=== PATIENT | female | born 1965 | race Two or more races ===

== ENCOUNTER 2020-06-22 06:54 | Outpatient (NON) | payer MEDICARE, SELFPAY ==
[2020-06-22 19:23] LABS: SARS-CoV-2 RNA PCR Negative
== END 2020-06-22 06:55 ==
PROVIDERS: PCP Internal Medicine; Visit Provider Chiropractor
DX: R05 Cough (principal); Z20.822 Contact with and (suspected) exposure to COVID-19
CPT/HCPCS: C9803; U0003

== ENCOUNTER → 2020-10-27 15:21 | Outpatient (CLI) | payer MEDICARE, SELFPAY ==
--- NOTE | ~2020-10-27 | XR_ITS ---
XR hip BI wo pelvis DATE: 10/27/2020 16:13 INDICATION: Bilateral hip pain TECHNIQUE: AP and lateral views of each hip COMPARISON: None FINDINGS: No fracture or dislocation, avascular necrosis or bone destruction of either hip is evident . Hip joint spaces appear symmetric and well preserved. The pubic symphysis and sacroiliac joints are intact. IMPRESSION: No significant abnormality Reviewed, dictated and finalized at location A. IMPRESSION: No significant abnormality
== END ==
PROVIDERS: PCP Chiropractor; Visit Provider Chiropractor
DX: M25.551 Pain in right hip (principal); M25.552 Pain in left hip
CPT/HCPCS: 73521

== ENCOUNTER → 2020-11-01 08:37 | Outpatient (CLI) | payer MEDICARE, SELFPAY ==
--- NOTE | ~2020-11-01 | MMUS_ITS ---
EXAMINATION: MM diagnostic justine BI w leonel, US breast RT complete HISTORY: Right breast lumpiness. Palpable right lateral breast abnormality and axillary tenderness. TECHNIQUE: Additional 3-D tomosynthesis images of the breasts were performed and synthetic 2-D images were generated. CAD analysis was submitted and interpreted. High resolution complete breast and axil brandon ultrasound was performed. COMPARISON: None BREAST PARENCHYMAL COMPOSITION: Breast composed of scattered areas of fibroglandular density. FINDINGS: MAMMOGRAPHIC FINDINGS: There is a small circumscribed mass upper outer quadrant of the right breast, middle third, most like ly benign intramammary lymph node. There is symmetric bilateral axillary lymph nodes. No suspicious c alcifications or architectural distortion. No evidence for malignancy in the left breast. ULTRASOUND: Right breast/axillary ultrasound: At 10:00, 8 cm from the nipple, there is an oval hypoechoic mass me asuring 7 mm, parallel orientation, no posterior features and no internal vascularity. There are mild ly enlarged right axillary lymph nodes with retention of normal fatty hilum. Largest lymph node measu res approximately 2.3 cm. IMPRESSION: 1. Probable benign right breast intramammary and axillary lymph nodes. 2. Recommend 6 month follow-up diagnostic right mammogram and ultrasound BI-RADS category 3, probably benign findings. Reviewed, dictated and finalized at location A. IMPRESSION: 1. Probable benign right breast intramammary and axillary lymph nodes. 2. Recommend 6 month follow-up diagnostic right mammogram and ultrasound BI-RADS category 3, probably benign findings.
== END ==
PROVIDERS: Visit Provider Chiropractor
DX: R92.8 Other abnormal and inconclusive findings on diagnostic imaging of breast (principal)
CPT/HCPCS: 76641; 77062; 77066; G0279

== ENCOUNTER → 2021-04-24 09:49 | Outpatient (REF) | payer MEDICARE, SELFPAY | LOC: ANHLAB 09:49 | PROVIDERS: PCP Internal Medicine; Visit Provider Nurse Practitioner | DX: D22.30 Melanocytic nevi of unspecified part of face (principal) | CPT/HCPCS: 88305 ==

== ENCOUNTER 2021-08-28 00:48 | Day surgery (SDC) | payer MEDICARE, SELFPAY ==
[2021-08-24 13:25] VITALS: BMI 25.1
[2021-08-28 06:45] VITALS: BP 149/79; PULSE 79; RESP 16; TEMP 36; O2SAT 98
[2021-08-28] MEDS: LACTATED RINGERS 1,000 ML 150 ML IV CONT (06:49)
--- NOTE | 2021-08-28 07:54 | WPDANESEPPF ---
Anes - Initial Pre Proc Eval Procedure: Operation Date: 08/28/21 08:00 Proposed Procedures p Colonoscopy - Tex Montoya MD Date/Time: 08/28/21 07:54 Surgeon: Tex Montoya MD Pre Op Diagnosis: Rectal bleed Patient Data Age: 55 Gender: F Height: 1.83 m Weight: 89.8 kg Last Vital Signs Temp 96.8 F L 08/28/21 06:45 Pulse 79 08/28/21 06:45 Resp 16 08/28/21 06:45 BP 149/79 H 08/28/21 06:45 Pulse Ox 98 08/28/21 06:45 Allergies Allergy/AdvReac Type Severity Reaction Status Date / Time hydrocodone Allergy Unknown Unknown Verified 08/28/21 06:44 morphine Allergy Unknown Unknown Verified 08/28/21 06:44 meperidine AdvReac Intermediate Nausea and Verified 08/28/21 06:44 Vomiting fentanyl AdvReac Mild Unknown Verified 08/28/21 06:44 SALICYLATES AdvReac Mild NOSE BLEEDS Uncoded 08/28/21 06:44 Home Medications Medication Instructions Recorded Confirmed Type Biest cream 10 mg/ml NOT APPLICABLE DAILY 11/28/20 08/28/21 History Progesterone 2 ml NOT APPLICABLE DAILY 11/28/20 08/28/21 History Testosterone 2 ml NOT APPLICABLE [id number] 11/28/20 08/28/21 History duloxetine 60 mg capsule,delayed 60 mg PO DAILY 11/28/20 08/28/21 History release lisinopril 10 mg tablet 10 mg PO DAILY 11/28/20 08/28/21 History low dose Naltrexone 4.5 mg BYMOUTH .every night 11/28/20 08/28/21 History thyroid (pork) 60 mg tablet 45 mg PO DAILY 11/28/20 08/28/21 History trazodone 50 mg tablet 75 mg PO QHS PRN tablet 11/28/20 08/28/21 History nortriptyline 25 mg capsule 25 mg PO DAILY #90 cap 07/17/21 08/28/21 Rx tizanidine 2 mg tablet 2 mg PO TID PRN #90 tablet 07/24/21 08/28/21 Rx omeprazole 20 mg capsule,delayed 20 mg PO DAILY #90 cap 08/21/21 08/28/21 Rx release alprazolam 2 mg tablet 2 mg PO TID tablet 08/23/21 08/28/21 History hydrochlorothiazide 25 mg PO DAILY 08/24/21 08/28/21 History omega-3 fatty acids [Fish Oil] 1 cap PO DAILY 08/24/21 08/28/21 History Patient hx anesthesia problems: none Family hx anesthesia problems: none Results Review: All pre-operative results and documents have been reviewed as part of the pre-operative evaluation. FORMERLY [facility] Past Medical History Medical History (Updated 08/23/21 @ 11:42 by Lorena Shane DO) Allergies Anxiety Arthritis Chronic post-traumatic stress disorder (PTSD) Family history of colon cancer in father Headache History of irritable bowel syndrome History of removal of cervix but not uterus Hypertension Migraine Thyroid disorder Surgical History Surgical History History of hemorrhoidectomy History of hysterectomy History of knee replacement Family History Family History Mother Hypertension Family history of rheumatoid arthritis Depression Anxiety Father Carcinoma of colon Acute myocardial infarction Cerebrovascular accident Sibling Leukemia Hypertension Anxiety Depression Acute myocardial infarction Grandparent Diabetes mellitus Hypertension Anxiety Depression Other Family history of cardiovascular disease Family history of kidney disease Family history of tuberculosis Social History Social History Smoking status: Former smoker Tobacco type: cigarettes Alcohol intake: never Substance use: never Substance use type: does not use Living arrangements: with family Spiritual care concerns: Yes (Would like a preacher to visit) Anes - Eval Final PreProcedure Day of Procedure 08/28/21 07:54 Patient weight: normal Heart: regular rate and rhythm Lungs: clear to auscultation Airway: Mallampati scale class II Neurological: alert and oriented Last oral intake: >/= 8 hours ASA classification: II Emergent: no Anesthetic plan: proceed Anesthesia type and monitoring: general GIVS and standard monitoring Resul
--- NOTE | 2021-08-28 07:57 | PM.HPGS ---
History of Present Illness History of Present Illness Consent: Risks, benefits, and alternatives have been discussed and questions answered. Patient agrees to proceed with procedure. Chief complaint: Rectal bleed Narrative: Mile Lopez is a 55 year old female with last colonoscopy about 10 years ago, had intermittent rectal bleeding with hemorrhoid treatment in the past Review of Systems Constitutional: Constitutional: Denies headache(s) and Denies weakness Eyes: Eyes: Denies blurry vision ENT: Reports Normal hearing present, Denies headache(s) and Denies neck pain Cardiovascular: Cardiovascular: Denies chest pain and Denies dyspnea Respiratory: Respiratory: Denies dyspnea Gastrointestinal: Gastrointestinal: Reports no additional gastrointestinal complaints Genitourinary: Genitourinary: Denies dysuria Musculoskeletal: Musculoskeletal: Denies neck pain Integumentary/Breasts: Skin/Breast: Denies dry skin Neurologic: Reports Normal hearing present, Denies headache(s) and Denies weakness Psychiatric: Psychiatric: Denies anxiety Endocrine: Endocrine: Denies change in body appearance Hematologic/Lymphatic: Hematologic/Lymphatic: Denies easy bleeding Allergic/Immunologic: Allergic/Immunologic: Denies urticaria PMFSH Past Medical History Medical History (Updated 08/23/21 @ 11:42 by Lorena Shane DO) Allergies Anxiety Arthritis Chronic post-traumatic stress disorder (PTSD) Family history of colon cancer in father Headache History of irritable bowel syndrome History of removal of cervix but not uterus Hypertension Migraine Thyroid disorder Surgical History Surgical History History of hemorrhoidectomy History of hysterectomy History of knee replacement Family History Family History Mother Hypertension Family history of rheumatoid arthritis Depression Anxiety Father Carcinoma of colon Acute myocardial infarction Cerebrovascular accident Sibling Leukemia Hypertension Anxiety Depression Acute myocardial infarction Grandparent Diabetes mellitus Hypertension Anxiety Depression Other Family history of cardiovascular disease Family history of kidney disease Family history of tuberculosis Social History Social History Smoking status: Former smoker Tobacco type: cigarettes Alcohol intake: never Substance use: never Substance use type: does not use Living arrangements: with family Spiritual care concerns: Yes (Would like a preacher to visit) Meds Home Medications and Allergies Home Medications Medication Instructions Recorded Confirmed Type Biest cream 10 mg/ml NOT APPLICABLE DAILY 11/28/20 08/28/21 History Progesterone 2 ml NOT APPLICABLE DAILY 11/28/20 08/28/21 History Testosterone 2 ml NOT APPLICABLE [id number] 11/28/20 08/28/21 History duloxetine 60 mg capsule,delayed 60 mg PO DAILY 11/28/20 08/28/21 History release lisinopril 10 mg tablet 10 mg PO DAILY 11/28/20 08/28/21 History low dose Naltrexone 4.5 mg BYMOUTH .every night 11/28/20 08/28/21 History thyroid (pork) 60 mg tablet 45 mg PO DAILY 11/28/20 08/28/21 History trazodone 50 mg tablet 75 mg PO QHS PRN tablet 11/28/20 08/28/21 History nortriptyline 25 mg capsule 25 mg PO DAILY #90 cap 07/17/21 08/28/21 Rx tizanidine 2 mg tablet 2 mg PO TID PRN #90 tablet 07/24/21 08/28/21 Rx omeprazole 20 mg capsule,delayed 20 mg PO DAILY #90 cap 08/21/21 08/28/21 Rx release alprazolam 2 mg tablet 2 mg PO TID tablet 08/23/21 08/28/21 History hydrochlorothiazide 25 mg PO DAILY 08/24/21 08/28/21 History omega-3 fatty acids [Fish Oil] 1 cap PO DAILY 08/24/21 08/28/21 History Allergies Allergy/AdvReac Type Severity Reaction Status Date / Time hydrocodone Allergy Unknown Unknown Verified 08/28/21 06:44 morphine Allergy Unknow
[2021-08-28 08:20] VITALS: BP 90/62; PULSE 73; RESP 20; O2SAT 97
[2021-08-28 08:30] VITALS: BP 112/78; PULSE 67; RESP 24; O2SAT 100
[2021-08-28 08:40] VITALS: BP 118/87; PULSE 93; RESP 28; O2SAT 100
== END 2021-08-28 08:46 | disposition home or self-care (01) ==
PROVIDERS: PCP Internal Medicine; Visit Provider Internal Medicine Gastroenterology
PROC: 0DJD8ZZ Inspection of Lower Intestinal Tract, Via Natural or Artificial Opening Endoscopic (ICD-10-PCS; CPT 45378; principal; 2021-08-28 08:00)
DX: K92.1 Melena (principal); Z80.0 Family history of malignant neoplasm of digestive organs; K57.30 Diverticulosis of large intestine without perforation or abscess without bleeding; K64.8 Other hemorrhoids; F41.9 Anxiety disorder, unspecified; M19.90 Unspecified osteoarthritis, unspecified site; F43.10 Post-traumatic stress disorder, unspecified; K58.9 Irritable bowel syndrome, unspecified; I10 Essential (primary) hypertension; E07.9 Disorder of thyroid, unspecified; Z87.891 Personal history of nicotine dependence
CPT/HCPCS: 45378; J2704; J7120

== ENCOUNTER 2021-09-11 10:37 | Outpatient (CLI) | payer MEDICARE, SELFPAY ==
[2021-09-11 12:10] LABS: Free T4 Free Thyroxine 0.35 ng/mL (0.78-2.19); T4 Thyroxine 3.54 ug/dL (5.53-11.0)
[2021-09-11 14:22] LABS: Total Triiodothyronine (T3) 0.61 NG/ML (0.97-1.69)
[2021-09-14 07:40] LABS: T3 Reverse 8 ng/dL (8-25)
[2021-09-17 00:38] LABS: Estradiol, Ultrasensitive 21 pg/mL
[2021-09-17 07:40] LABS: Testosterone Free 25.2 pg/mL (0.1-6.4); Testosterone Total 283 ng/dL (2-45)
[2021-09-18 04:12] LABS: Sex Hormone Binding Globulin 69 nmol/L (17-124)
[2021-09-18 08:11] LABS: Triiodothyronine T3 Free 1.5 pg/mL (2.3-4.2)
[2021-09-19 04:35] LABS: Thyroglobulin 1.3 ng/mL (2.8-40.9); Thyroglobulin Antibodies <1 IU/mL (<=1); Thyroid Peroxidase Antibodies 18 IU/mL (<9)
[2021-09-19 06:35] LABS: FSH 71.7 mIU/mL (***)
== END 2021-09-11 10:38 | disposition home or self-care (01) ==
PROVIDERS: PCP Internal Medicine; Visit Provider Chiropractor
DX: N95.1 Menopausal and female climacteric states (principal); N95.8 Other specified menopausal and perimenopausal disorders; E06.3 Autoimmune thyroiditis; E03.8 Other specified hypothyroidism
CPT/HCPCS: 36415; 82670; 83001; 84144; 84270; 84402; 84403; 84432; 84436; 84439; 84443; 84480; 84481; 84482; 86376; 86800

== ENCOUNTER 2022-01-14 14:44 | Outpatient (CLI) | payer MEDICARE, SELFPAY ==
[2022-01-14 15:53] LABS: T4 Thyroxine 4.56 ug/dL (5.53-11.0)
[2022-01-17 06:23] LABS: FSH 65.4 mIU/mL (***); Progesterone 9.6 ng/mL (***); Triiodothyronine T3 Free 3.2 pg/mL (2.3-4.2)
[2022-01-18 18:58] LABS: Testosterone Free 29.8 pg/mL (0.1-6.4); Testosterone Total 301 ng/dL (2-45)
[2022-01-21 07:27] LABS: Sex Hormone Binding Globulin 73 nmol/L (14-73)
[2022-01-22 01:42] LABS: Estradiol, Ultrasensitive 12 pg/mL
== END 2022-01-14 14:45 | disposition home or self-care (01) ==
PROVIDERS: PCP Internal Medicine; Visit Provider Chiropractor
DX: N95.1 Menopausal and female climacteric states (principal); N95.8 Other specified menopausal and perimenopausal disorders; E03.8 Other specified hypothyroidism; E06.3 Autoimmune thyroiditis
CPT/HCPCS: 36415; 82670; 83001; 84144; 84270; 84402; 84403; 84436; 84443; 84481

== ENCOUNTER → 2022-03-28 14:53 | Outpatient (CLI) | payer MEDICARE, SELFPAY ==
--- NOTE | ~2022-03-28 | XR_ITS ---
EXAMINATION: XR hand RT min 3V INDICATION: Pain in the right fourth finger, history of prior trauma TECHNIQUE: Three views of the right hand are obtained. COMPARISON: None available FINDINGS: Bone alignment is normal. There is no fracture. There is mild osteoarthritis of multiple in terphalangeal joints. There is a mild swan-neck deformity of the fourth finger. The soft tissues are unremarkable. IMPRESSION: 1. Mild swan-neck deformity of the fourth finger, likely reflecting prior trauma. No acute osseous ab normality identified. Reviewed, dictated and finalized at location F. IMPRESSION: 1. Mild swan-neck deformity of the fourth finger, likely reflecting prior traum a. No acute osseous abnormality identified.
--- NOTE | ~2022-03-28 | XR_ITS ---
EXAMINATION: XR lumbar spine min 4V DATE: 03/28/2022 15:19 INDICATION: Low back pain TECHNIQUE: Anteroposterior, lateral, and bilateral oblique views of the lumbar spine, and cone-down l ateral view of the lumbosacral junction were obtained. COMPARISON: None. FINDINGS: There is no fracture, dislocation, or subluxation. The vertebral body heights and alignment are normal. The intervertebral disc spaces are maintained. Small degenerative osteophytes project fr om the anterior endplates of multiple vertebral bodies. There is mild facet joint osteoarthritis of t he lower lumbar spine. The bowel gas pattern is normal. IMPRESSION: 1. Mild lower lumbar spondylosis without acute findings. Reviewed, dictated and finalized at location F.
== END ==
PROVIDERS: PCP Family Medicine; Visit Provider Family Medicine
DX: G89.29 Other chronic pain (principal); M79.644 Pain in right finger(s); M47.896 Other spondylosis, lumbar region
CPT/HCPCS: 72110; 73130

== ENCOUNTER 2022-05-15 13:19 | Outpatient (CLI) | payer MEDICARE, SELFPAY ==
[2022-05-15 14:11] LABS: Basophils Absolute Auto 0.1 K/mm3 (0.0-0.1); Basophils Percent Auto 1.1 % (0.2-1.2); Eosinophils Percent Auto 0.9 % (0-4.4); Hematocrit 43.7 % (37.0-47.0); Hemoglobin 14.2 g/dL (12.0-15.0); Immature Granulocyte Absolute 0.01 K/mm3 (0.00-0.031); Immature Granulocyte Percent A 0.2 % (0-0.5); Lymphocytes Absolute Auto 1.31 K/mm3 (0.9-3.2); Mean Corpuscular HGB Conc 32.5 g/dl (32-36); Mean Corpuscular Volume 95.4 fl (80-100); Mean Platelet Volume 11.4 fl (7.4-10.4); Monocytes Absolute Auto 0.4 K/mm3 (0.1-0.6); Monocytes Percent Auto 8.2 % (2.6-8.5); Neutrophils Absolute Auto 2.7 K/mm3 (1.3-6.7); Neutrophils Percent Auto 60.6 % (45.5-73.1); Platelet Count Result 224 k/mm3 (150-375); Red Blood Count 4.58 M/mm3 (4.2-5.4); Red Cell Distribution Width 13.4 % (11.5-14.5); White Blood Count 4.5 K/mm3 (4.5-10.0)
[2022-05-15 14:16] LABS: Alanine Aminotransferase 17 U/L (6-35); Albumin Level 4.4 g/dL (3.5-5.1); Alkaline Phosphatase 64 U/L (38-126); Anion Gap 7 mmol/L (8-16); Aspartate Amino Transferase 26 U/L (14-36); Bilirubin,Total 0.4 mg/dL (0.2-1.3); Blood Urea Nitrogen 8 mg/dL (7-17); Calcium 8.6 mg/dL (8.4-10.2); Carbon Dioxide 28 mmol/L (22-30); Chloride 105 mmol/L (98-107); Cholesterol 241 mg/dL (0-200); Estimated Glomerular Filt Rate 51; Glucose 99 mg/dL (65-110); HDL Direct 37 mg/dL; Hemoglobin A1C 5.4 % (<5.7); Sodium 140 mmol/L (137-145); Triglycerides 168 mg/dL (<150)
[2022-05-15 14:27] LABS: LDL Cholesterol Direct 158 mg/dL
[2022-05-15 14:30] LABS: Free T4 Free Thyroxine 0.85 ng/mL (0.78-2.19); Vitamin D 25 Hydroxy 31.9 ng/mL
[2022-05-15 14:45] LABS: Thyroid Stimulating Hormone 0.035 uIU/mL (0.465-4.680)
[2022-05-18 03:03] LABS: FSH 73.4 mIU/mL (***); Progesterone 10.5 ng/mL (***); Triiodothyronine T3 Free 4.2 pg/mL (2.3-4.2)
[2022-05-23 19:21] LABS: Estradiol, Ultrasensitive 23 pg/mL
== END 2022-05-15 13:20 | disposition home or self-care (01) ==
LOC: ANHLAB 13:30
PROVIDERS: PCP Internal Medicine; Referring Provider Chiropractor; Visit Provider Family Medicine
DX: E03.9 Hypothyroidism, unspecified (principal); E55.9 Vitamin D deficiency, unspecified; R73.9 Hyperglycemia, unspecified; R53.83 Other fatigue; Z13.220 Encounter for screening for lipoid disorders; N95.1 Menopausal and female climacteric states; N95.8 Other specified menopausal and perimenopausal disorders; E03.8 Other specified hypothyroidism; E06.3 Autoimmune thyroiditis
CPT/HCPCS: 36415; 80053; 80061; 82306; 82670; 83001; 83036; 84144; 84402; 84403; 84439; 84443; 84481; 85025

== ENCOUNTER 2022-08-08 12:32 | Outpatient (NON) | payer MEDICARE, SELFPAY | END 2022-08-08 12:33 | disposition home or self-care (01) | LOC: ANHGOSHLAB 12:34 | PROVIDERS: PCP Internal Medicine; Visit Provider Clinical Nurse Specialist | DX: R30.0 Dysuria (principal) | CPT/HCPCS: 87086; 87088 ==

== ENCOUNTER 2023-01-14 16:17 | Outpatient (CLI) | payer MEDICARE, SELFPAY ==
[2023-01-14 17:03] LABS: Basophils Percent Auto 0.8 % (0.2-1.2); Eosinophils Percent Auto 0.8 % (0-4.4); Hematocrit 44.2 % (37.0-47.0); Hemoglobin 15.2 g/dL (12.0-15.0); Immature Granulocyte Absolute 0.02 K/mm3 (0.00-0.031); Immature Granulocyte Percent A 0.4 % (0-0.5); Lymphocytes Absolute Auto 1.57 K/mm3 (0.9-3.2); Mean Corpuscular HGB Conc 34.4 g/dl (32-36); Mean Corpuscular Hemoglobin 32.1 pg (26-34); Mean Corpuscular Volume 93.2 fl (80-100); Mean Platelet Volume 12.2 fl (7.4-10.4); Monocytes Absolute Auto 0.6 K/mm3 (0.1-0.6); Monocytes Percent Auto 11.3 % (2.6-8.5); Neutrophils Percent Auto 56.7 % (45.5-73.1); Platelet Count Result 233 k/mm3 (150-375); Red Blood Count 4.74 M/mm3 (4.2-5.4); Red Cell Distribution Width 13.3 % (11.5-14.5); White Blood Count 5.2 K/mm3 (4.5-10.0)
[2023-01-14 17:04] LABS: Appearance Urine Clear (Clear); Bilirubin Urine Negative (Negative); Blood Urine Negative (Negative); Color Urine Yellow (Yellow); Glucose Urine UA Negative (Negative); Ketones Urine 1+ mg/dL (Negative); Leukocyte Esterase Ur Negative LEU/UL (Negative); Nitrate Urine Negative (Negative); Protein Urine Negative (Negative); Specific Grav Ur 1.011 (1.001-1.035); Urobilinogen Urine 0.2 mg/dL (<2.0)
[2023-01-14 17:17] LABS: Add Urine Microscopic? NO
[2023-01-14 17:20] LABS: D Dimer 0.35 ug/mL (<0.48)
[2023-01-14 17:52] LABS: NT Pro B Type Natriuretic Pept < 20 pg/mL (19.9-100)
[2023-01-14 18:14] LABS: Thyroid Stimulating Hormone 0.103 uIU/mL (0.465-4.680)
[2023-01-14 18:31] LABS: Free T4 Free Thyroxine 1.12 ng/mL (0.78-2.19)
[2023-01-15 10:28] LABS: Alanine Aminotransferase 21 U/L (6-35); Albumin Level 4.4 g/dL (3.5-5.1); Alkaline Phosphatase 49 U/L (38-126); Anion Gap 11 mmol/L (8-16); Aspartate Amino Transferase 28 U/L (14-36); Bilirubin,Total 0.5 mg/dL (0.2-1.3); Blood Urea Nitrogen 9 mg/dL (7-17); Calcium 9.3 mg/dL (8.4-10.2); Carbon Dioxide 21 mmol/L (22-30); Chloride 95 mmol/L (98-107); Estimated Glomerular Filt Rate 51; Glucose 94 mg/dL (65-110); Potassium 3.6 mmol/L (3.4-5.0); Sodium 127 mmol/L (137-145)
[2023-01-17 20:19] LABS: Sex Hormone Binding Globulin 53 nmol/L (14-73)
[2023-01-18 10:53] LABS: FSH 76.8 mIU/mL (***); Progesterone 20.4 ng/mL (***); Triiodothyronine T3 Free 3.6 pg/mL (2.3-4.2)
[2023-01-19 12:43] LABS: Testosterone Free 78.4 pg/mL (0.1-6.4); Testosterone Total 552 ng/dL (2-45)
[2023-01-21 23:18] LABS: Estradiol, Ultrasensitive 33 pg/mL
== END 2023-01-14 16:18 | disposition home or self-care (01) ==
PROVIDERS: PCP Family Medicine; Referring Provider Chiropractor; Visit Provider Clinical Nurse Specialist
DX: R06.02 Shortness of breath (principal); R30.0 Dysuria; G43.909 Migraine, unspecified, not intractable, without status migrainosus; N95.1 Menopausal and female climacteric states; E06.3 Autoimmune thyroiditis; E03.8 Other specified hypothyroidism
CPT/HCPCS: 36415; 80053; 81003; 82607; 82670; 83001; 83880; 84144; 84270; 84402; 84403; 84439; 84443; 84481; 85025; 85380

== ENCOUNTER 2023-01-15 11:48 | Observation (INO) | payer MEDICARE, SELFPAY ==
[2023-01-15] VITALS (64 sets, daily range): BP systolic 103–135; BP diastolic 46–89; PULSE 61–111; RESP 11–28; TEMP 36.3–36.6; O2SAT 93–100
--- NOTE | ~2023-01-15 | XR_ITS ---
EXAMINATION: XR chest 2V DATE: 01/15/2023 12:26 INDICATION: Chest pain. Shortness of breath. TECHNIQUE: Frontal and lateral views of the chest were obtained. COMPARISON: CT abdomen and pelvis 12/31/2014 FINDINGS: There is chronic mild elevation of right hemidiaphragm. No pneumonia, pleural effusion, or pneumothorax. The heart size is normal. IMPRESSION: 1. No acute cardiopulmonary disease. Reviewed, dictated and finalized at location B.
--- NOTE | ~2023-01-15 | CT_ITS ---
EXAMINATION: CTA chest PE protocol DATE: 01/15/2023 12:52 INDICATION: Shortness of breath. Chest pain. TECHNIQUE: Computed tomography angiography (CTA) of the chest was performed with 100 mL Omnipaque-350 intravenous contrast timed to evaluate the pulmonary arteries. Coronal maximum intensity projection 3D-reconstructions were created by the technologist. Automated exposure control and iterative reconst ruction technique were employed. The dose-length product was 344.94 mGy-cm. COMPARISON: CT abdomen and pelvis 12/31/2014 FINDINGS: There is mild scarring at right lung apex. There is mild atelectasis bilaterally. No pleura l effusion. The heart size is normal. There is a small pericardial effusion. There is no pulmonary em bolus. The gallbladder is distended. There is mild thoracic spondylosis. IMPRESSION: 1. No pulmonary embolus. 2. Gallbladder distention, which may be seen with fasting. Correlate with physical exam to exclude ac [place] cholecystitis. 3. Small pericardial effusion. Reviewed, dictated and finalized at location B. IMPRESSION: 1. No pulmonary embolus. 2. Gallbladder distention, which may be seen with fasting. Correlate with physi jose martin exam to exclude acute cholecystitis. 3. Small pericardial effusion.
--- NOTE | ~2023-01-15 | US_ITS ---
EXAMINATION: US abdomen limited DATE: 01/16/2023 08:40 INDICATION: Cholelithiasis. TECHNIQUE: Multiple grayscale and Doppler ultrasound images of the abdomen were obtained. COMPARISON: CT abdomen and pelvis 12/31/2014, chest CT 01/15/2023 FINDINGS: The visualized portions of the head, body, and tail of the pancreas are normal. There is di ffuse hepatic steatosis. There is normal flow in main portal vein. The gallbladder is distended and c ontains stones. No gallbladder wall thickening or sonographic Vargas sign. The common duct is normal and measures 6 mm. IMPRESSION: 1. Distended gallbladder with gallstones. No gallbladder wall thickening or sonographic Vargas sign t o suggest acute cholecystitis. 2. Diffuse hepatic steatosis. Reviewed, dictated and finalized at location L. IMPRESSION: 1. Distended gallbladder with gallstones. No gallbladder wall thickening or son ographic Vargas sign to suggest acute cholecystitis. 2. Diffuse hepatic steatosis.
--- NOTE | 2023-01-15 12:02 | ECG_ITS ---
Measurements Intervals [place] Rate: 111 P: 52 WA: 124 QRS: 0 QRSD: 80 T: 75 QT: 328 QTc: 446 Interpretive Statements SINUS TACHYCARDIA NONSPECIFIC ST CHANGES NO PREVIOUS ECG AVAILABLE FOR COMPARISON Electronically Signed On 01-15-2023 19:35:52 CDT by Mayda Chávez M.D.
[2023-01-15 12:13] LABS: Basophils Percent Auto 0.7 % (0.2-1.2); Eosinophils Absolute Auto 0.1 K/mm3 (0-0.3); Eosinophils Percent Auto 1.3 % (0-4.4); Hematocrit 45.4 % (37.0-47.0); Hemoglobin 15.7 g/dL (12.0-15.0); Immature Granulocyte Absolute 0.02 K/mm3 (0.00-0.031); Immature Granulocyte Percent A 0.3 % (0-0.5); Lymphocytes Absolute Auto 1.59 K/mm3 (0.9-3.2); Lymphocytes Percent Auto 26.3 % (18.3-44.2); Mean Corpuscular HGB Conc 34.6 g/dl (32-36); Mean Corpuscular Hemoglobin 32.2 pg (26-34); Mean Corpuscular Volume 93.2 fl (80-100); Mean Platelet Volume 12.3 fl (7.4-10.4); Monocytes Absolute Auto 0.6 K/mm3 (0.1-0.6); Monocytes Percent Auto 10.6 % (2.6-8.5); Neutrophils Absolute Auto 3.7 K/mm3 (1.3-6.7); Neutrophils Percent Auto 60.8 % (45.5-73.1); Platelet Count Result 260 k/mm3 (150-375); Red Blood Count 4.87 M/mm3 (4.2-5.4); Red Cell Distribution Width 13.3 % (11.5-14.5)
--- NOTE | 2023-01-15 12:21 | ED.CHESTPAIN ---
HPI - Chest Pain General Chief Complaint: Chest Pain Stated Complaint: chest pain SOB Time Seen by Provider: 01/15/23 12:03 History of Present Illness HPI narrative: Patient is a 57-year-old female with a history of hypothyroidism, hypertension, PTSD presenting with chest pain and abnormal labs. Patient states that for the last 6 months she has had worsening exertional dyspnea associated with palpitations and chest pain. States that she had a near syncopal episode the other night while putting some dishes away. She saw her PCP who ordered labs and she received a call today saying her sodium was abnormal. She denies fevers, cough, leg swelling, abdominal pain, diarrhea, dysuria. Reports intermittent vomiting for several months. Related Data Home Medications Medication Instructions Recorded Confirmed Biest cream 10 mg/ml Not Applicable DAILY 11/28/20 01/14/23 Progesterone 2 ml Not Applicable DAILY 11/28/20 01/14/23 Testosterone 2 ml Not Applicable [id number] 11/28/20 01/14/23 duloxetine 60 mg capsule,delayed 60 mg PO DAILY 11/28/20 01/14/23 release (Cymbalta) low dose Naltrexone 4.5 mg BYMOUTH .every night 11/28/20 01/14/23 thyroid (pork) 60 mg tablet 45 mg PO DAILY 11/28/20 01/14/23 ([place] Thyroid) trazodone 50 mg tablet 75 mg PO QHS PRN Insomnia 11/28/20 01/14/23 alprazolam 2 mg tablet (Xanax) 2 mg PO TID 08/23/21 01/14/23 hydrochlorothiazide 25 mg tablet 25 mg PO DAILY 08/24/21 01/14/23 omega-3 fatty acids 1 cap PO DAILY 08/24/21 01/14/23 magnesium 250 mg tablet 250 mg PO DAILY 07/31/22 01/14/23 Allergies Allergy/AdvReac Type Severity Reaction Status Date / Time hydrocodone Allergy Unknown Unknown Verified 01/15/23 12:00 morphine Allergy Unknown Unknown Verified 01/15/23 12:00 meperidine AdvReac Intermediate Nausea and Verified 01/15/23 12:00 Vomiting fentanyl AdvReac Mild Unknown Verified 01/15/23 12:00 SALICYLATES AdvReac Mild NOSE BLEEDS Uncoded 01/15/23 12:00 Review of Systems Review of Systems: All systems reviewed & are unremarkable except as noted in HPI and below PMFSH Past Medical History Medical History Allergies Anxiety Arthritis Chronic post-traumatic stress disorder (PTSD) Dysuria Family history of colon cancer in father Headache History of irritable bowel syndrome History of removal of cervix but not uterus Hypertension Migraine Pain in finger of right hand Scalp lesion Skin neoplasm [place]-neck deformity of finger of right hand Thyroid disorder Urinary tract infection Surgical History Surgical History History of hemorrhoidectomy History of hysterectomy History of knee replacement Family History Family History Mother Hypertension Family history of rheumatoid arthritis Depression Anxiety Father Carcinoma of colon Acute myocardial infarction Cerebrovascular accident Sibling Leukemia Hypertension Anxiety Depression Acute myocardial infarction Grandparent Diabetes mellitus Hypertension Anxiety Depression Other Family history of cardiovascular disease Family history of kidney disease Family history of tuberculosis Social History Social History Smoking status: Former smoker Tobacco type: cigarettes Alcohol intake: never Substance use: never Substance use type: does not use Lack of Transportation: No Lack of Food: Never True Current Housing: I Have Housing Concerned About Future Housing: No Difficulty Paying Gas/Electric Bills: No Difficulty Paying for Meds: No Currently Unemployed: No Education: Bachelor's Degree Difficulty w/ Childcare or Family Care: No Living arrangements: with family Spiritual care concerns: Yes (Would like a preacher to visit) Exam Narrative: GENERAL: Well-appearing
[2023-01-15 12:24] LABS: Alanine Aminotransferase 24 U/L (6-35); Albumin Level 4.7 g/dL (3.5-5.1); Alkaline Phosphatase 49 U/L (38-126); Anion Gap 9 mmol/L (8-16); Aspartate Amino Transferase 31 U/L (14-36); Bilirubin,Total 0.7 mg/dL (0.2-1.3); Blood Urea Nitrogen 7 mg/dL (7-17); Calcium 9.1 mg/dL (8.4-10.2); Carbon Dioxide 26 mmol/L (22-30); Chloride 92 mmol/L (98-107); Estimated CRCL calculation 53 ml/min; Estimated Glomerular Filt Rate 46; Glucose 111 mg/dL (65-110); Lipase 188 U/L (23-300); Potassium 3.6 mmol/L (3.4-5.0); Sodium 127 mmol/L (137-145)
[2023-01-15] MEDS: LACTATED RINGERS 1,000 ML 999 ML IV CONT (12:33)
[2023-01-15 12:35] LABS: Troponin I < 0.012 ng/mL (0.000-0.034)
[2023-01-15 13:08] LABS: Partial Thromboplastin Time 28.4 SECONDS (22.3-36.8)
[2023-01-15 13:09] LABS: Magnesium 2.1 mg/dL (1.6-2.3)
[2023-01-15 13:18] LABS: NT Pro B Type Natriuretic Pept < 20 pg/mL (19.9-100)
[2023-01-15 15:50] LABS: Troponin I < 0.012 ng/mL (0.000-0.034)
--- NOTE | 2023-01-15 17:59 | ADMGEN ---
This patient, Mile Lopez, was admitted to Medical Room 254-01. Patient/family oriented to hospital policies and general routines including ID bracelet, bed and alarms, visiting hours, pain management, procedures, bathroom and other care routines, personal items, smoking policy, room service/diet, and visiting hours. Information on how to activate the Rapid Response Team has been discussed. Patient/Family are encouraged to report perceived risks to care and to ask questions if they do not understand what they are told or what they should do.
--- NOTE | 2023-01-15 19:00 | PM.IMHP ---
H&P: HPI History of Present Illness Date/Time: 01/15/23 19:00 Chief Complaint: Chest pain Narrative: This is a 57-year-old female patient who has a history of hypothyroidism, hypertension and PTSD. The patient came in with chest pain today. Her primary care doctor's office called her today with results of labs and told her to get to the emergency room right away. The patient stated for the last 6 months she has had worsening exertional dyspnea. The patient states when she puts her arms up to put dishes away she gets short of breath and has chest pain. The patient stated that she had a near syncopal episode while putting some dishes away. The patient stated she does not have pain with deep breaths but when she is moving her arms or with exertion she starts to have chest pain. Her sodium was found to be 127. The patient does drink a lot of fluids. I explained to her that she drinks too much water she can flush out her sodium. Patient's BUN is 7 creatinine is 1.2. Troponins negative x3. Her TSH level 0.100 however her free T is 1. 12. Chest x-ray was read as no acute cardiopulmonary disease. Chest CTA was read as the following1. No pulmonary embolus. 2. Gallbladder distention, which may be seen with fasting. Correlate with physical exam to exclude acute cholecystitis. 3. Small pericardial effusion. The patient has no epigastric discomfort but she said is more midsternal. The patient was given lactated Ringer's an aspirin in the emergency room. The patient is being admitted to observation status on the date of service of 01/15/2023 Review of Systems Review of Systems: All systems reviewed & are unremarkable except as noted in HPI and below Constitutional: Constitutional: Reports as per HPI and Reports no additional constitutional complaints Eyes: Eyes: Reports as per HPI and Reports no additional eye complaints ENT: Reports system reviewed and no additional complaints, except as documented and Reports Normal hearing present Cardiovascular: Cardiovascular: Reports no additional cardiovascular complaints Respiratory: Respiratory: Reports no additional respiratory complaints and Reports no additional respiratory complaints Gastrointestinal: Gastrointestinal: Reports as per HPI and Reports no additional gastrointestinal complaints Musculoskeletal: Musculoskeletal: Reports no additional musculoskeletal complaints Integumentary/Breasts: Skin/Breast: Reports system reviewed and no additional complaints, except as docu and Reports as per HPI Neurologic: Reports system reviewed and no additional complaints, except as documented, Reports as per HPI and Reports Normal hearing present Psychiatric: Psychiatric: Reports no additional psychiatric complaints and Reports as per HPI Endocrine: Endocrine: Reports no additional endocrine complaints Hematologic/Lymphatic: Hematologic/Lymphatic: Reports no additional hematologic/lymphatic complaints Allergic/Immunologic: Allergic/Immunologic: Reports no additional allergic/immunologic complaints [facility] Past Medical History Medical History (Updated 01/15/23 @ 21:56 by Bianca Davalos NP) Allergies Anxiety Arthritis Chronic post-traumatic stress disorder (PTSD) Dysuria Family history of colon cancer in father Fibromyalgia Headache History of irritable bowel syndrome History of removal of cervix but not uterus Hypertension Migraine Pain in finger of right hand Scalp lesion Skin neoplasm [place]-neck deformity of finger of right hand Thyroid disorder Urinary tract infection Surgical History Surgical History History of hemorrhoidectomy History of hysterectomy History of knee replacement Family History Family History Mother Hypertension Family history of rheumatoid arthritis Depression Anxiety Father Carcinoma of colon Acute myocardial infarction Cerebrovascular a
[2023-01-15 19:07] LABS: Troponin I < 0.012 ng/mL (0.000-0.034)
[2023-01-15] MEDS: NORTRIPTYLINE HCL 25 MG CAPSULE PO (21:59)
[2023-01-15] MEDS: ALPRAZolam (*CRX) 0.5 MG TABLET 2 MG PO (21:59)
[2023-01-15] MEDS: traZODone HCL 25 MG TABLET PO (22:02)
[2023-01-15] MEDS: traZODone HCL 50 MG TABLET PO (22:03)
[2023-01-15] MEDS: IBUPROFEN 600 MG TABLET PO (22:04)
[2023-01-15 23:13] LABS: Anion Gap 9 mmol/L (8-16); Blood Urea Nitrogen 6 mg/dL (7-17); Calcium 8.5 mg/dL (8.4-10.2); Carbon Dioxide 23 mmol/L (22-30); Chloride 95 mmol/L (98-107); Estimated CRCL calculation 63 ml/min; Estimated Glomerular Filt Rate 57; Glucose 100 mg/dL (65-110); Potassium 3.3 mmol/L (3.4-5.0); Sodium 127 mmol/L (137-145)
[2023-01-16] VITALS (9 sets, daily range): BP systolic 111–137; BP diastolic 63–74; PULSE 61–75; RESP 14–18; TEMP 36.3–36.8; O2SAT 96–99; BMI 28.3
--- NOTE | 2023-01-16 | ECHO_ITS ---
Patient Info Name: Mile Lopez Age: 57 years : 1965 Gender: Female Ht: 72 in Wt: 199 lbs BSA: 2.15 m2 HR: 66 bpm BP: 111 / 64 mmHg Heart Rhythm: Sinus Rhythm Technical Quality: Good Exam Date: 01/16/2023 11:12 AM Exam Location: [facility] Patient Status: Outpatient Admit Date: 01/15/2023 Staff Ordering Physician: Bianca Davalos NP [employer] Department Supervisor: Danya Francois RDCS Attending Provider: Macie Castro MD Referring Physician: Susannah MONTEJO; Exam Type: CA echo doppler color flow Study Info Indications - pericarditis Complete two-dimensional, color flow and Doppler transthoracic echocardiogram is performed. Summary 1. Complete two-dimensional, color flow and Doppler transthoracic echocardiogram is performed. 2. Normal left ventricular size and function with good contractility of all segments. Ejection fraction 55-60%. No segmental wall motion abnormalities. Normal diastolic function. 3. No significant valve disease. 4. No pulmonary hypertension, estimated pulmonary arterial systolic pressure is 15 mmHg. 5. Trivial (physiologic) pericardial effusion. 6. Normal sinus rhythm. Left Ventricle Left ventricular chamber dimension is normal. Left ventricular systolic function is normal, estimated at 55-60%. There is no increased left ventricular wall thickness. Left ventricular septal wall motion is normal. The left ventricular diastolic function is normal. Right Ventricle Right ventricular chamber dimension is normal. Right ventricular systolic function is normal. Left Atria Left atrial chamber dimension is normal. Right Atria Right atrial chamber dimension is normal. Aortic Valve The aortic valve is trileaflet. There is no aortic valve sclerosis. There is no aortic valve stenosis. There is no aortic valve regurgitation. Pulmonic Valve The pulmonic valve is normal. There is no pulmonic valve stenosis. There is trace pulmonic regurgitation. Mitral Valve The mitral valve has normal leaflets. There is no mitral valve stenosis. There is no mitral valve regurgitation. Tricuspid Valve The tricuspid valve leaflets are normal. There is no significant tricuspid valve stenosis. There is trace tricuspid valve regurgitation. No pulmonary hypertension, estimated pulmonary arterial systolic pressure is 15 mmHg. Pericardium/Pleural The pericardium appears normal. There is trivial pericardial effusion. Inferior Vena Cava Normal inferior vena cava with >50% collapse upon inspiration consistent with Empty right atrial pressure, 10 mmHg. Aorta The aortic root size at the sinus of Valsalva is normal. The prox ascending aorta size is normal. Left Ventricular Outflow Tract Name Value Normal LVOT 2D LVOT Diameter 1.9 cm LVOT Doppler LVOT Peak Gradient 2 mmHg LVOT Mean Gradient 1 mmHg LVOT VTI 18 cm LVOT VTI/AV VTI Ratio 0.7 LVOT Stroke Volume 50 ml LVOT CO 3.2 l/min LVOT CI 1.5 l/min/m2 Pulmonic Valve
[2023-01-16 01:08] LABS: Potassium Urine Random 11.4 meq/L; Sodium Urine Random 34 meq/L
[2023-01-16] MEDS: IBUPROFEN 600 MG TABLET PO ×3 (05:29→21:24)
--- NOTE | 2023-01-16 05:44 | PC.NURSE ---
Orienting nurse Arie Narvaez RN license pending has preformed all assessments and documentation on this patient and has been reviewed.
[2023-01-16 06:02] LABS: Basophils Percent Auto 0.9 % (0.2-1.2); Eosinophils Absolute Auto 0.1 K/mm3 (0-0.3); Eosinophils Percent Auto 1.8 % (0-4.4); Hematocrit 40.4 % (37.0-47.0); Hemoglobin 13.8 g/dL (12.0-15.0); Immature Granulocyte Absolute 0.02 K/mm3 (0.00-0.031); Immature Granulocyte Percent A 0.5 % (0-0.5); Lymphocytes Absolute Auto 1.24 K/mm3 (0.9-3.2); Lymphocytes Percent Auto 27.9 % (18.3-44.2); Mean Corpuscular HGB Conc 34.2 g/dl (32-36); Mean Corpuscular Hemoglobin 32.2 pg (26-34); Mean Corpuscular Volume 94.4 fl (80-100); Mean Platelet Volume 12.2 fl (7.4-10.4); Monocytes Absolute Auto 0.5 K/mm3 (0.1-0.6); Monocytes Percent Auto 10.6 % (2.6-8.5); Neutrophils Absolute Auto 2.6 K/mm3 (1.3-6.7); Neutrophils Percent Auto 58.3 % (45.5-73.1); Platelet Count Result 199 k/mm3 (150-375); Red Blood Count 4.28 M/mm3 (4.2-5.4); Red Cell Distribution Width 13.2 % (11.5-14.5); White Blood Count 4.4 K/mm3 (4.5-10.0)
[2023-01-16 06:13] LABS: Lactic Acid Reflex 0.6 mmol/L (0.7-2.0)
[2023-01-16 06:15] LABS: Alanine Aminotransferase 19 U/L (6-35); Albumin Level 4.2 g/dL (3.5-5.1); Alkaline Phosphatase 44 U/L (38-126); Anion Gap 9 mmol/L (8-16); Aspartate Amino Transferase 26 U/L (14-36); Bilirubin,Total 0.6 mg/dL (0.2-1.3); Blood Urea Nitrogen 5 mg/dL (7-17); Calcium 8.4 mg/dL (8.4-10.2); Carbon Dioxide 26 mmol/L (22-30); Chloride 95 mmol/L (98-107); Estimated CRCL calculation 63 ml/min; Estimated Glomerular Filt Rate 57; Glucose 93 mg/dL (65-110); Magnesium 2.2 mg/dL (1.6-2.3); Potassium 3.4 mmol/L (3.4-5.0); Sodium 130 mmol/L (137-145)
--- NOTE | 2023-01-16 07:31 | PM.CNCAR ---
Assessment and Plan Assessment and plan (1) Pericardial effusion: Code(s): I31.39 - Other pericardial effusion (noninflammatory) Status: Acute Assessment and Plan: EKG not typical for pericarditis. Symptoms not typical for pericarditis. However reports a low grade fever. Poss 2nd viral infection. Pt also report ho rheumatoid arthritis, which may be an etiology. No clinical evidence of tamponade. Certainly not all pt's sx are related to the pericardial effusion. --Check echo --Sed rate, KARI, rheumatoid factor (2) Chest pain: Code(s): R07.9 - Chest pain, unspecified Status: Acute Assessment and Plan: Atypical for pericarditis and for CAD, though worse w/ activity using her arms. She does have some chest wall tenderness and aggravation of sx w/ movement of her arms, so this may be musculoskeletal, particularly w/ a h/o fibromyalgia and RA. However, she has risk factors for CAD as well. --Stress cardiolite --Symptomatic tx (3) Exertional dyspnea: Code(s): R06.09 - Other forms of dyspnea Status: Acute Assessment and Plan: No clear etiology. --Stress cardiolite (4) Hyponatremia: Code(s): E87.1 - Hypo-osmolality and hyponatremia Status: Acute Assessment and Plan: Mild hyponatremia --DC HCTZ (5) Near syncope: Code(s): R55 - Syncope and collapse Status: Acute Assessment and Plan: Not orthostatic; rec'd 1 L IV fluids. Wonder if this is a side effect of some of her medications. --Increase activity and cont to check orthostatics. (6) Palpitations: Code(s): R00.2 - Palpitations Status: Acute Assessment and Plan: Palps and racing heart, pounding heart. Sinus tach? PACs/PVCs? May be 2nd mild hyperthyroidism. Can be a side effect of some of her meds as well. --Cont tele monitor --Check for POTS (Check HR and BP at rest and after standing for 10 minutes) --May need OPT long-term monitor as sx more common when she is up and about. (7) Iatrogenic hypothyroidism: Code(s): E03.2 - Hypothyroidism due to medicaments and other exogenous substances Status: Acute Assessment and Plan: TSH 0.1 --Reduce thyroid dose (8) Anxiety: Code(s): F41.9 - Anxiety disorder, unspecified Status: Acute Assessment and Plan: Pt has a h/o anxiety, and admits to being scared that she may have heart disease. Her anxiety may be augmenting her sx as well. History of Present Illness History of Present Illness Consult date/time: 01/16/23 07:31 Reason For Visit: exertional dyspnea Narrative: Mile Lopez is a 57 y.o female whom we were asked to see at the request of FAITH Davalos for our advice and opinion regarding her chest pain, small pericardial effusion noted by CT scan, possible pericarditis, in consultation. The patient has a history of hypertension, anxiety, fibromyalgia, thyroid disease, and PTSD. Also a family h/o premature CAD with her mother having stents starting around 52 y.o. The patient was seen by her primary care provider yesterday complaining of shortness of breath, dizziness, chest pain, palpitations, and a near syncopal episode. Her TSH was noted to be 0.1 and sodium 127. She was admitted for evaluation. Ms. Lopez problems with past 6 months with significant dyspnea, palpitations and some chest discomfort whenever she uses her arms such as washing her hair, folding clothes, or reaching for things. She so short of breath she feels like she is gasping. Several time she thought she should go to the emergency room. Regarding her chest pain, deon will have a numb flushed deep discomfort primarily on the middle of her chest which feels like a electric pain usually for 15 or 20 minutes, sometimes 30 minutes. Sometimes it will radiate to her jaw and she feels like an electric shock. She can dance around her house for 30-45 minutes and she will get somedyspnea with this
[2023-01-16 08:37] LABS: Rheumatoid Factor < 12.0 IU/ML (<12)
[2023-01-16 08:51] LABS: Erythrocyte Sedimentation Rate 14 mm/hr (0-20)
[2023-01-16] MEDS: ALPRAZolam (*CRX) 0.5 MG TABLET 2 MG PO ×3 (09:09→16:44)
[2023-01-16] MEDS: DULoxetine HCL 60 MG CAPSULE.DR PO (09:10)
[2023-01-16] MEDS: THYROID 30 MG TABLET 90 MG PO (09:10)
--- NOTE | 2023-01-16 09:31 | PM.IMPN ---
Progress Note: A&P Assessment and Plan (1) Pericardial effusion: Code(s): I31.39 - Other pericardial effusion (noninflammatory) Status: Acute Assessment and Plan: 01/16: EKG not typical for pericarditis.? Symptoms not typical for pericarditis.? However reports a low grade fever.? Poss 2nd viral infection.? Pt also report ho rheumatoid arthritis, which may be an etiology.? No clinical evidence of tamponade.? Certainly not all pt's sx are related to the pericardial effusion. --Check echo --Sed rate, KARI, rheumatoid factor (2) Hyponatremia: Code(s): E87.1 - Hypo-osmolality and hyponatremia Status: Acute Assessment and Plan: 01/16: Mild hyponatremia --DC HCTZ --Na 127 on arrival, now 130 --monitor for gradual improvement (3) Chest pain: Code(s): R07.9 - Chest pain, unspecified Status: Acute Assessment and Plan: 01/15: Atypical for pericarditis and for CAD, though worse w/ activity using her arms.? She does have some chest wall tenderness and aggravation of sx w/ movement of her arms,? so this may be musculoskeletal, particularly w/ a h/o fibromyalgia and RA.? However, she has risk factors for CAD as well. --Stress cardiolite --Symptomatic tx (4) Fibromyalgia: Code(s): M79.7 - Fibromyalgia Status: Acute Assessment and Plan: Cluster of unexplained symptoms with possible polypharmacy complications (5) Exertional dyspnea: Code(s): R06.09 - Other forms of dyspnea Status: Acute Assessment and Plan: No clear etiology. --Stress cardiolite (6) Near syncope: Code(s): R55 - Syncope and collapse Status: Acute Assessment and Plan: Not orthostatic; rec'd 1 L IV fluids. Wonder if this is a side effect of someof her medications. --Increase activity and cont to check orthostatics. (7) Palpitations: Code(s): R00.2 - Palpitations Status: Acute Assessment and Plan: Palps and racing heart, pounding heart.? Sinus tach?? PACs/PVCs?? May be 2nd mild hyperthyroidism.? Can be a side effect of some of her meds as well.? --Cont tele monitor --May need OPT long-term monitor as sx more common when she is up and about. (8) Anxiety: Code(s): F41.9 - Anxiety disorder, unspecified Status: Acute Assessment and Plan: Pt has a h/o anxiety, and admits to being scared that she may have heart disease.? Her anxiety may be augmenting her sx as well. (9) Iatrogenic hypothyroidism: Code(s): E03.2 - Hypothyroidism due to medicaments and other exogenous substances Status: Acute Assessment and Plan: TSH 0.1 --Reduce thyroid dose to 45 mg daily Subjective Date/time seen: 01/16/23 09:31 Interval history: 01/15: Copied from previous chart: Chief Complaint: Chest pain Narrative: This is a 57-year-old female patient who has a history of hypothyroidism, hypertension and PTSD.? The patient came in with chest pain today.? Her primary care doctor's office called her today with results of labs and told her to get to the emergency room right away.? The patient stated for the last 6 months she has had worsening exertional dyspnea.? The patient states when she puts her arms up to put dishes away she gets short of breath and has chest pain.? The patient stated that she had a near syncopal episode while putting some dishes away.? The patient stated she does not have pain with deep breaths but when she is moving her arms or with exertion she starts to have chest pain.? Her sodium was found to be 127.? The patient does drink a lot of fluids.? I explained to her that she drinks too much water she can flush out her sodium.? Patient's BUN is 7 creatinine is 1.2.? Troponins negative x3.? Her TSH level 0.100 however her free T is 1. 12.? Chest x-ray was read as no acute cardiopulmonary disease.? Chest CTA was read as the following1. No pulmonary embolus. 2. Gallbladder distention, which may be seen with fasting. Co
--- NOTE | 2023-01-16 12:01 | PHAR ---
HOME: PROGESTERONE 200 MG CAP; TAKE 1 CAPSULE BY MOUTH EVERY NIGHT. NALTREXONE HCL 4.5 MG CAPSULE; TAKE 1 TABLET BY MOUTH EVERY NIGHT AT BEDTIME. VERIFIED BY PHARMACY.
[2023-01-16] MEDS: TIZANIDINE HCL 2 MG TABLET BY MOUTH (13:24)
[2023-01-16] MEDS: traZODone HCL 25 MG TABLET PO (21:25)
[2023-01-16] MEDS: traZODone HCL 50 MG TABLET PO (21:25)
[2023-01-16] MEDS: NORTRIPTYLINE HCL 25 MG CAPSULE PO (21:25)
[2023-01-17] VITALS (12 sets, daily range): BP systolic 100–121; BP diastolic 51–76; PULSE 58–101; RESP 16–20; TEMP 36.1–36.8; O2SAT 96–100
[2023-01-17] MEDS: IBUPROFEN 600 MG TABLET PO ×3 (05:29→21:13)
[2023-01-17 07:10] LABS: Hematocrit 41.7 % (37.0-47.0); Hemoglobin 14.2 g/dL (12.0-15.0); Mean Corpuscular HGB Conc 34.1 g/dl (32-36); Mean Corpuscular Hemoglobin 31.9 pg (26-34); Mean Corpuscular Volume 93.7 fl (80-100); Mean Platelet Volume 12.6 fl (7.4-10.4); Platelet Count Result 205 k/mm3 (150-375); Red Blood Count 4.45 M/mm3 (4.2-5.4); Red Cell Distribution Width 13.1 % (11.5-14.5)
--- NOTE | 2023-01-17 07:18 | PCCARD ---
STRESS TEST WITH NUCLEAR MED HAD TO BE CANCELLED DUE TO THERE WASN'T AN 'NPO' ORDER PUT IN AND THE PATIENT DRANK COFFEE
[2023-01-17 07:30] LABS: Anion Gap 9 mmol/L (8-16); Blood Urea Nitrogen 6 mg/dL (7-17); Calcium 8.4 mg/dL (8.4-10.2); Carbon Dioxide 23 mmol/L (22-30); Chloride 95 mmol/L (98-107); Estimated CRCL calculation 63 ml/min; Estimated Glomerular Filt Rate 57; Glucose 90 mg/dL (65-110); Potassium 3.2 mmol/L (3.4-5.0); Sodium 127 mmol/L (137-145)
[2023-01-17] MEDS: POTASSIUM CHLORIDE 20 MEQ ER TABLET 40 MEQ PO (08:45)
[2023-01-17] MEDS: ALPRAZolam (*CRX) 0.5 MG TABLET 2 MG PO ×3 (08:45→17:43)
[2023-01-17] MEDS: DULoxetine HCL 60 MG CAPSULE.DR PO (08:46)
[2023-01-17] MEDS: SODIUM CHLORIDE 500 MG TABLET PO ×2 (08:47→17:43)
[2023-01-17] MEDS: THYROID 30 MG TABLET 45 MG PO (08:47)
--- NOTE | 2023-01-17 11:45 | PM.IMPN ---
Progress Note: A&P Assessment and Plan (1) Pericardial effusion: Code(s): I31.39 - Other pericardial effusion (noninflammatory) Status: Acute Assessment and Plan: 01/16: EKG not typical for pericarditis.? Symptoms not typical for pericarditis.? However reports a low grade fever.? Poss 2nd viral infection.? Pt also report ho rheumatoid arthritis, which may be an etiology.? No clinical evidence of tamponade.? Certainly not all pt's sx are related to the pericardial effusion. --Check echo --Sed rate, KARI, rheumatoid factor (2) Hyponatremia: Code(s): E87.1 - Hypo-osmolality and hyponatremia Status: Acute Assessment and Plan: 01/16: Mild hyponatremia --DC HCTZ --Na 127 on arrival, now 130 --monitor for gradual improvement 01/17 sodium level back to 127. Added salt tabs 500 mg b.i.d. (3) Chest pain: Code(s): R07.9 - Chest pain, unspecified Status: Acute Assessment and Plan: 01/15: Atypical for pericarditis and for CAD, though worse w/ activity using her arms.? She does have some chest wall tenderness and aggravation of sx w/ movement of her arms,? so this may be musculoskeletal, particularly w/ a h/o fibromyalgia and RA.? However, she has risk factors for CAD as well. --Stress cardiolite --Symptomatic tx (4) Fibromyalgia: Code(s): M79.7 - Fibromyalgia Status: Acute Assessment and Plan: Cluster of unexplained symptoms with possible polypharmacy complications (5) Exertional dyspnea: Code(s): R06.09 - Other forms of dyspnea Status: Acute Assessment and Plan: No clear etiology. --Stress cardiolite (6) Near syncope: Code(s): R55 - Syncope and collapse Status: Acute Assessment and Plan: Doing well today. (7) Palpitations: Code(s): R00.2 - Palpitations Status: Acute Assessment and Plan: Palps and racing heart, pounding heart.? Sinus tach?? PACs/PVCs?? May be 2nd mild hyperthyroidism.? Can be a side effect of some of her meds as well.? --Cont tele monitor --May need OPT long-term monitor as sx more common when she is up and about. (8) Anxiety: Code(s): F41.9 - Anxiety disorder, unspecified Status: Acute Assessment and Plan: Pt has a h/o anxiety, and admits to being scared that she may have heart disease.? Her anxiety may be augmenting her sx as well. (9) Iatrogenic hypothyroidism: Code(s): E03.2 - Hypothyroidism due to medicaments and other exogenous substances Status: Acute Assessment and Plan: TSH 0.1 --Reduce thyroid dose to 45 mg daily Plan Plan is for stress Cardiolite which had to be rescheduled due to miscommunication regarding NPO status and no caffeine. Cluster of symptoms does not appear to be cardiac in nature. Suspect this is complicated related to fibromyalgia and rheumatoid process. Time Spent With Patient Time with patient: 25 - 35 minutes Subjective Date/time seen: 01/17/23 11:45 Interval history: 01/15: Copied from previous chart: Chief Complaint: Chest pain Narrative: This is a 57-year-old female patient who has a history of hypothyroidism, hypertension and PTSD.? The patient came in with chest pain today.? Her primary care doctor's office called her today with results of labs and told her to get to the emergency room right away.? The patient stated for the last 6 months she has had worsening exertional dyspnea.? The patient states when she puts her arms up to put dishes away she gets short of breath and has chest pain.? The patient stated that she had a near syncopal episode while putting some dishes away.? The patient stated she does not have pain with deep breaths but when she is moving her arms or with exertion she starts to have chest pain.? Her sodium was found to be 127.? The patient does drink a lot of fluids.? I explained to her that she drinks too much water she can flush out her sodium.? Patient's BUN is 7 creatinine is
--- NOTE | 2023-01-17 11:45 | PM.DS ---
DS: Summary Time Spent with Patient Time attestation: Total time spent providing and/or coordinating discharge services: DS: Data Data Completed and Pending Labs on day of discharge: Labs from last 24 hours 01/17/23 06:35 WBC 4.0 L RBC 4.45 Hgb 14.2 Hct 41.7 MCV 93.7 MCH 31.9 MCHC 34.1 RDW 13.1 Plt Count 205 MPV 12.6 H Sodium 127 L Potassium 3.2 L Chloride 95 L Carbon Dioxide 23 Anion Gap 9 BUN 6 L Creatinine 1.00 Estim Creat Clear Calc 63 Estimated GFR 57 L Glucose 90 Calcium 8.4 Discharge Plan Discharge Consulting providers: Sandeep James; Mayda Chávez Patient Instructions: Suicide Prevention (DC) Discharge Medications: No Action duloxetine [Cymbalta] 60 mg capsule,delayed release(DR/EC) 60 mg PO DAILY trazodone 50 mg tablet 100 mg PO QHS PRN (Reason: Insomnia) low dose Naltrexone 4.5 mg BYMOUTH .every night Progesterone 200 mg Not Applicable DAILY Rx Instructions: takes in evening Testosterone 20 ml Not Applicable [id number] Rx Instructions: 0.2mg alprazolam [Xanax] 2 mg tablet 2 mg PO TID Patient Comments: prescribed by psych hydrochlorothiazide 25 mg Tablet 25 mg PO DAILY thyroid (pork) [[place] Thyroid] 90 mg tablet 90 mg PO DAILY Spravato 84 mg (28 mg x 3) spray,non-aerosol 84 mg INTRANASAL WEEKLY Rx Instructions: Friday or nortriptyline 25 mg capsule 25 mg PO HS tizanidine 2 mg tablet See Rx Instructions .ROUTE .COMPLEX Qty: 270 3RF Dose Instruction: TAKE 1 TABLET BY MOUTH 3 TIMES DAILY NEEDED FOR MUSCLE SPASTICITY Rx Instructions: TAKE 1 TABLET BY MOUTH 3 TIMES DAILY NEEDED FOR MUSCLE SPASTICITY: TRY TO MINIMIZE USE lisinopril 10 mg tablet See Rx Instructions .ROUTE .COMPLEX Qty: 90 1RF Dose Instruction: TAKE 1 TABLET BY MOUTH DAILY Rx Instructions: TAKE 1 TABLET BY MOUTH DAILY takes in evening omeprazole 20 mg capsule,delayed release(DR/EC) See Rx Instructions .ROUTE .COMPLEX Qty: 90 0RF Dose Instruction: TAKE 1 CAPSULE BY MOUTH DAILY Rx Instructions: TAKE 1 CAPSULE BY MOUTH DAILY Date of admission: 01/15/23 16:07 Primary Care Provider: Lorena Shane Admitting Provider: Macie Castro Attending physician on admission: Macie Castro Condition: Stable
[2023-01-17] MEDS: NORTRIPTYLINE HCL 25 MG CAPSULE PO (21:13)
[2023-01-17] MEDS: traZODone HCL 25 MG TABLET PO (21:18)
[2023-01-17] MEDS: traZODone HCL 50 MG TABLET PO (21:18)
[2023-01-18] VITALS: PULSE 67
[2023-01-18 04:00] VITALS: PULSE 63
[2023-01-18] MEDS: IBUPROFEN 600 MG TABLET PO (05:10)
[2023-01-18 05:28] VITALS: BP 113/78; PULSE 72; RESP 18; TEMP 36.3; O2SAT 99
[2023-01-18 06:32] LABS: Hematocrit 40.8 % (37.0-47.0); Hemoglobin 13.8 g/dL (12.0-15.0); Mean Corpuscular HGB Conc 33.8 g/dl (32-36); Mean Corpuscular Hemoglobin 31.7 pg (26-34); Mean Corpuscular Volume 93.8 fl (80-100); Mean Platelet Volume 12.5 fl (7.4-10.4); Platelet Count Result 216 k/mm3 (150-375); Red Blood Count 4.35 M/mm3 (4.2-5.4); Red Cell Distribution Width 13.2 % (11.5-14.5); White Blood Count 4.4 K/mm3 (4.5-10.0)
[2023-01-18 06:50] LABS: Anion Gap 7 mmol/L (8-16); Blood Urea Nitrogen 6 mg/dL (7-17); Calcium 8.4 mg/dL (8.4-10.2); Carbon Dioxide 24 mmol/L (22-30); Chloride 96 mmol/L (98-107); Estimated CRCL calculation 58 ml/min; Estimated Glomerular Filt Rate 51; Glucose 84 mg/dL (65-110); Potassium 3.7 mmol/L (3.4-5.0); Sodium 127 mmol/L (137-145)
[2023-01-18 08:00] VITALS: PULSE 78
[2023-01-18] MEDS: DULoxetine HCL 60 MG CAPSULE.DR PO (09:26)
[2023-01-18] MEDS: ALPRAZolam (*CRX) 0.5 MG TABLET 2 MG PO (09:26)
[2023-01-18] MEDS: THYROID 30 MG TABLET 45 MG PO (09:27)
[2023-01-18] MEDS: SODIUM CHLORIDE 1 GM TABLET PO (09:27)
[2023-01-18] MEDS: polyethylene glycoL 3350 17 GM POWD.PACK PO (09:27)
--- NOTE | 2023-01-18 10:20 | PM.DS ---
DS: Admitting Diagnosis Discharge Date 01/18/2023 Admitting Diagnosis Pericardial effusion hyponatremia fibromyalgia hypertension chronic PTSD DS: Discharge Diagnosis Discharge Diagnosis (1) Pericardial effusion: Code(s): I31.39 - Other pericardial effusion (noninflammatory) Status: Acute (2) Hyponatremia: Code(s): E87.1 - Hypo-osmolality and hyponatremia Status: Acute (3) Chest pain: Code(s): R07.9 - Chest pain, unspecified Status: Acute (4) Fibromyalgia: Code(s): M79.7 - Fibromyalgia Status: Acute (5) Exertional dyspnea: Code(s): R06.09 - Other forms of dyspnea Status: Acute (6) Near syncope: Code(s): R55 - Syncope and collapse Status: Acute (7) Palpitations: Code(s): R00.2 - Palpitations Status: Acute (8) Anxiety: Code(s): F41.9 - Anxiety disorder, unspecified Status: Acute DS: Summary Hospital Course Reason for hospitalization: This is a 57-year-old female patient who was admitted to the hospital due to worsening dyspnea exertion as well as chest pain. There were CT concerning pericarditis Hospital Course: Cardiology was consulted to assist in managing patient care. Besides exertional dyspnea and chest pain raising arms above her head patient also found to hyponatremia and complained of numerous waxing waning chronic symptoms including dizziness and severe anxiety. We discontinued patient's hydrochlorothiazide due to hyponatremia. Patient was admitted with a sodium level of 127 and for the 3 days she was here remained 127-130. After cardiac evaluation minus stress testing was completed patient was reassured that the symptoms do not appear to be cardiac in nature. Left discussion for multiple days regarding potential for mindbody symptomatology with noticing symptoms because of being concerned than getting more concerned when he notice something in the in noticing something makes she wore concerned and back and forth. Patient has established Psychiatry and will follow-up with them. Of note, she is receiving large doses of alprazolam 2 mg 3 times daily. I did discuss patient considering slowly titrating down on this medication. Prescription for salt tabs written as we do not want to aggressively raise her sodium or keep her on necessarily hospitalized. Patient in agreement with this course of action and plan. She notes she has an upcoming vacation and does not want to miss it. After discussion, patient will continue cardiac workup after returning from vacation. Status at Discharge Cognitive/behavioral status at discharge: awake, alert, oriented x4 Functional status at discharge: independent ambulation Overall status at discharge: patient is back to baseline Time Spent with Patient Time attestation: Total time spent providing and/or coordinating discharge services: Time spent: Greater than 30 minutes Exam Narrative: Pleasant well-groomed middle-aged female, at the bedside Const: General: cooperative and healthy appearing; No comfortable or confusion Orientation/consciousness: oriented to person, patient oriented x3 and No confusion Other: Apprehensive and admits to being scared HENMT: Mouth: Yes moist mucous membranes Eyes: General: appearance normal, both eyes and all related structures EOM: EOMs intact bilaterally Neck: Neck: supple and no JVD Thyroid: thyroid normal Carotids: no bruits Chest: Other: Some chest tenderness along the left parasternal area Resp: Effort & Inspection: normal respiratory effort Auscultation: clear to auscultation bilaterally Cardio: Rate: regular rate Rhythm: regular rhythm Heart sounds: Murmur heart sound present (1/6 LAURA left lower sternal border) and no rubs GI: Inspection: normal to inspection GI Palp: No abdominal tenderness Skin: General skin exam: normal color and no rashes or lesions noted Neuro: General: oriented to per
[2023-01-19 21:51] LABS: Osmolality, Urine 188 mOsm/kg (50-1200)
[2023-01-24 13:22] LABS: Anti Nuclear Antibody Titer 1:40 (Negative)
== END 2023-01-18 11:20 | disposition home or self-care (01) ==
LOC: ANHED 16:40 → ANH3MEDSUR 17:14 → ANH2MED 17:32
PROVIDERS: Emergency Medicine; Internal Medicine Cardiovascular Disease; Nurse Practitioner; Admitting Provider Family Medicine; Emergency Provider Emergency Medicine; PCP Family Medicine; Visit Provider Family Medicine
DX: I31.39 Other pericardial effusion (noninflammatory) (principal); E87.1 Hypo-osmolality and hyponatremia; M79.7 Fibromyalgia; R06.09 Other forms of dyspnea; R55 Syncope and collapse; R07.9 Chest pain, unspecified; K80.20 Calculus of gallbladder without cholecystitis without obstruction; R00.2 Palpitations; R79.9 Abnormal finding of blood chemistry, unspecified; F41.9 Anxiety disorder, unspecified; F43.12 Post-traumatic stress disorder, chronic; I10 Essential (primary) hypertension; G47.00 Insomnia, unspecified; G43.909 Migraine, unspecified, not intractable, without status migrainosus; K76.0 Fatty (change of) liver, not elsewhere classified; E03.2 Hypothyroidism due to medicaments and other exogenous substances; Z79.899 Other long term (current) drug therapy; Z82.49 Family history of ischemic heart disease and other diseases of the circulatory system; Z84.89 Family history of other specified conditions; Z87.891 Personal history of nicotine dependence
CPT/HCPCS: 36415; 71046; 71275; 76705; 80048; 80053; 83605; 83690; 83735; 83880; 83935; 84133; 84300; 84484; 85025; 85027; 85610; 85652; 85730; 86038; 86039; 86430; 93005; 93306; A9270; G0378; J7120; Q9967

== ENCOUNTER 2023-04-21 07:43 | Outpatient (CLI) | payer MEDICARE, SELFPAY ==
[2023-04-21 08:17] LABS: Basophils Percent Auto 0.6 % (0.2-1.2); Eosinophils Absolute Auto 0.1 K/mm3 (0-0.3); Eosinophils Percent Auto 1.3 % (0-4.4); Hematocrit 41.9 % (37.0-47.0); Hemoglobin 13.6 g/dL (12.0-15.0); Immature Granulocyte Absolute 0.01 K/mm3 (0.00-0.031); Immature Granulocyte Percent A 0.2 % (0-0.5); Lymphocytes Absolute Auto 1.86 K/mm3 (0.9-3.2); Lymphocytes Percent Auto 29.7 % (18.3-44.2); Mean Corpuscular HGB Conc 32.5 g/dl (32-36); Mean Corpuscular Hemoglobin 31.1 pg (26-34); Mean Corpuscular Volume 95.9 fl (80-100); Mean Platelet Volume 11.5 fl (7.4-10.4); Monocytes Absolute Auto 0.4 K/mm3 (0.1-0.6); Monocytes Percent Auto 6.1 % (2.6-8.5); Neutrophils Absolute Auto 3.9 K/mm3 (1.3-6.7); Neutrophils Percent Auto 62.1 % (45.5-73.1); Platelet Count Result 238 k/mm3 (150-375); Red Blood Count 4.37 M/mm3 (4.2-5.4); Red Cell Distribution Width 14.8 % (11.5-14.5); White Blood Count 6.3 K/mm3 (4.5-10.0)
[2023-04-21 08:27] LABS: Alanine Aminotransferase 24 U/L (6-35); Albumin Level 4.2 g/dL (3.5-5.1); Alkaline Phosphatase 58 U/L (38-126); Anion Gap 7 mmol/L (8-16); Aspartate Amino Transferase 24 U/L (14-36); Bilirubin,Total 0.6 mg/dL (0.2-1.3); Blood Urea Nitrogen 5 mg/dL (7-17); Calcium 8.8 mg/dL (8.4-10.2); Carbon Dioxide 26 mmol/L (22-30); Chloride 104 mmol/L (98-107); Cholesterol 194 mg/dL (0-200); Estimated Glomerular Filt Rate 57; Glucose 109 mg/dL (65-110); HDL Direct 36 mg/dL; Potassium 3.7 mmol/L (3.4-5.0); Sodium 137 mmol/L (137-145); Triglycerides 130 mg/dL (<150)
[2023-04-21 08:38] LABS: LDL Cholesterol Direct 126 mg/dL
[2023-04-21 08:51] LABS: Free T4 Free Thyroxine 0.98 ng/mL (0.78-2.19); Vitamin D 25 Hydroxy 53.5 ng/mL
[2023-04-21 08:57] LABS: Thyroid Stimulating Hormone 0.048 uIU/mL (0.465-4.680)
[2023-04-21 09:32] LABS: Folic Acid 3.2 ng/mL (2.76->20)
[2023-04-24 09:21] LABS: FSH 85.9 mIU/mL (***)
[2023-04-24 14:59] LABS: Testosterone Free 33.6 pg/mL (0.1-6.4); Testosterone Total 249 ng/dL (2-45)
[2023-04-28 23:26] LABS: Estradiol, Ultrasensitive 15 pg/mL
== END 2023-04-21 07:44 | disposition home or self-care (01) ==
PROVIDERS: PCP Family Medicine; Referring Provider Chiropractor; Visit Provider Family Medicine
DX: E55.9 Vitamin D deficiency, unspecified (principal); E78.2 Mixed hyperlipidemia; E87.1 Hypo-osmolality and hyponatremia; R00.2 Palpitations; N95.1 Menopausal and female climacteric states; N95.8 Other specified menopausal and perimenopausal disorders; E03.8 Other specified hypothyroidism; E06.3 Autoimmune thyroiditis
CPT/HCPCS: 36415; 80053; 80061; 82306; 82607; 82670; 82746; 83001; 84144; 84402; 84403; 84439; 84443; 85025

== ENCOUNTER 2023-09-05 09:25 | Outpatient (CLI) | payer MEDICARE, SELFPAY ==
[2023-09-05 10:49] LABS: Free T4 Free Thyroxine 0.76 ng/mL (0.78-2.19)
[2023-09-05 10:52] LABS: Thyroid Stimulating Hormone 0.017 uIU/mL (0.465-4.680)
[2023-09-10 13:07] LABS: FSH 121.2 mIU/mL (***); Progesterone 18.9 ng/mL (***); Triiodothyronine T3 Free 3.7 pg/mL (2.3-4.2)
[2023-09-10 14:42] LABS: Testosterone Free 10.9 pg/mL (0.1-6.4); Testosterone Total 156 ng/dL (2-45)
[2023-09-10 20:32] LABS: Estriol <0.10 ng/mL
== END 2023-09-05 09:26 | disposition home or self-care (01) ==
LOC: ANHLAB 09:28
PROVIDERS: Visit Provider Chiropractor
DX: N95.1 Menopausal and female climacteric states (principal); N95.8 Other specified menopausal and perimenopausal disorders; E03.8 Other specified hypothyroidism; E06.3 Autoimmune thyroiditis
CPT/HCPCS: 36415; 82677; 83001; 84144; 84402; 84403; 84439; 84443; 84481

== ENCOUNTER 2024-03-11 13:55 | Emergency (ER) | payer MEDICARE, SELFPAY ==
--- NOTE | ~2024-03-11 | CT_ITS ---
EXAMINATION: CT abdomen pelvis w con DATE: 03/11/2024 16:23 INDICATION: upper abd pain TECHNIQUE: Computed tomography (CT) of the abdomen and pelvis was performed with 100 mL Omnipaque-350 intravenous contrast. Automated exposure control and iterative reconstruction technique were employe d. The dose-length product was 363.35 mGy-cm. COMPARISON: 12/31/2014. FINDINGS: Study limited by motion artifact. Lower thorax: Unremarkable Liver: Normal. Biliary/Gallbladder: The gallbladder is distended. No stones. No inflammatory change. No bile duct di lation. Pancreas: No mass or duct dilation. Spleen: Normal. Adrenals:No mass. Kidneys: No suspicious mass, obstructing stone, or hydronephrosis. Multiple nonobstructing bilateral renal calculi. GI tract: No small or large bowel dilation. Normal appendix. Diverticulosis without diverticulitis. Mesentery/Peritoneum: No ascites, mass, or free air. Retroperitoneum: No mass. Pelvis: Bladder wall edema. Absent uterus and left ovary. Normal right ovary. Soft Tissues: Soft tissues and body wall unremarkable. Bones: No acute osseous finding. IMPRESSION: Gallbladder hydrops without inflammatory change. This may be secondary to fasting or obstruction. Cor relate with biliary labs. Likely cystitis. Correlate with urinalysis. Reviewed, dictated and finalized at location K. IMPRESSION: Gallbladder hydrops without inflammatory change. This may be secondary to fasti ng or obstruction. Correlate with biliary labs. Likely cystitis. Correlate with urinalysis.
--- NOTE | ~2024-03-11 | XR_ITS ---
XR chest 2V Ordering provider: Peterson Rodriguez MD History: 58 years Female with . cp, VOMITING . Comparison: January 15, 2023 FINDINGS: MEDIASTINUM: The cardiac silhouette is not enlarged. LUNGS: No infiltrates, effusions or pneumothorax. OTHER: No free air under the diaphragm. IMPRESSION: No acute cardiopulmonary pathology. Reviewed, dictated and finalized at location A.
[2024-03-11 13:58] VITALS: BP 143/87; PULSE 71; RESP 28; TEMP 36.2; O2SAT 100
--- NOTE | 2024-03-11 14:06 | ECG_ITS ---
Test Date: 2024-03-11 14:09:27 Measurements Intervals [place] Rate: 67 P: 64 CT: 122 QRS: 69 QRSD: 70 T: 70 QT: 402 QTc: 424 Interpretive Statements SINUS RHYTHM CANNOT R/O SEPTAL INFARCT, AGE INDETERMINATE BASELINE ARTIFACT- I, II, AVR, AVL, V1 ABNORMAL ECG No previous ECG available for comparison Electronically Signed On 03-11-2024 14:19:29 CDT by Ethan Sevilla D.O.
[2024-03-11 14:31] LABS: Basophils Percent Auto 0.2 % (0.2-1.2); Eosinophils Percent Auto 0.1 % (0-4.4); Hematocrit 43.3 % (37.0-47.0); Hemoglobin 14.4 g/dL (12.0-15.0); Immature Granulocyte Absolute 0.04 K/mm3 (0.00-0.031); Immature Granulocyte Percent A 0.3 % (0-0.5); Lymphocytes Absolute Auto 0.73 K/mm3 (0.9-3.2); Lymphocytes Percent Auto 5.8 % (18.3-44.2); Mean Corpuscular HGB Conc 33.3 g/dl (32-36); Mean Corpuscular Volume 93.1 fl (80-100); Mean Platelet Volume 12.6 fl (7.4-10.4); Monocytes Absolute Auto 0.2 K/mm3 (0.1-0.6); Monocytes Percent Auto 1.6 % (2.6-8.5); Neutrophils Absolute Auto 11.6 K/mm3 (1.3-6.7); Platelet Count Result 201 k/mm3 (150-375); Red Blood Count 4.65 M/mm3 (4.2-5.4); Red Cell Distribution Width 13.4 % (11.5-14.5); White Blood Count 12.6 K/mm3 (4.5-10.0)
[2024-03-11 14:41] LABS: Alanine Aminotransferase 16 U/L (6-35); Albumin Level 4.8 g/dL (3.5-5.1); Alkaline Phosphatase 65 U/L (38-126); Anion Gap 14 mmol/L (4-12); Aspartate Amino Transferase 36 U/L (14-36); Bilirubin,Total 0.7 mg/dL (0.2-1.3); Blood Urea Nitrogen 6 mg/dL (7-17); Calcium 9.6 mg/dL (8.4-10.2); Carbon Dioxide 21 mmol/L (22-30); Chloride 104 mmol/L (98-107); Estimated CRCL calculation 60 ml/min; Estimated Glomerular Filt Rate 57; Glucose 122 mg/dL (65-110); Lipase 282 U/L (23-300); Potassium 3.9 mmol/L (3.4-5.0); Sodium 139 mmol/L (137-145)
--- NOTE | 2024-03-11 14:48 | ED.GENADULT ---
HPI - General Adult General Chief complaint: Chest Pain Stated complaint: CHEST PAIN,N/V BODY ACHES Time Seen by Provider: 03/11/24 14:48 Focused HPI: Patient is a 58 y/o female who presents to the ED with multiple complaints. Patient reports she began feeling unwell this morning. She c/o chills, diaphoresis, subjective fevers, body aches, N/V, upper abd pain, dysuria, CP, anxiety. States she has been unable to keep down food or drink. Denies known sick contacts. States she also fell while walking her dog this morning, but denied injury. No HI/LOC. Patient has hx of anxiety but states she was unable to keep down her xanax today. GENERAL: Uncomfortable and anxious appearing, and in moderate acute distress. Difficulty sitting still in wheelchair. Moaning. HEAD: Normocephalic, atraumatic. CHEST: Clear to auscultation. ?No respiratory distress. Hyperventilating. No focal lung sounds. HEART: Regular rate and rhythm.? ABD: Diffuse tenderness throughout upper abdomen. Normoactive BS. NEURO: ?Alert and oriented x3. PSYCHIATRIC: Anxious, labile mood. Patient screened in triage and initial orders placed.? ?Additional care and disposition to be based upon?diagnostic testing and treatment. Source: patient Mode of arrival: ambulatory Limitations: no limitations Related Data Home Medications Medication Instructions Recorded Confirmed Progesterone 200 mg Not Applicable DAILY 11/28/20 09/10/23 Testosterone 20 ml Not Applicable [id number] 11/28/20 09/10/23 duloxetine 60 mg capsule,delayed 60 mg PO DAILY 11/28/20 09/10/23 release (Cymbalta) low dose Naltrexone 4.5 mg BYMOUTH .every night 11/28/20 09/10/23 trazodone 50 mg tablet 100 mg PO QHS PRN Insomnia 11/28/20 09/10/23 alprazolam 2 mg tablet (Xanax) 2 mg PO TID 08/23/21 09/10/23 Allergies Allergy/AdvReac Type Severity Reaction Status Date / Time hydrocodone Allergy Unknown Unknown Verified 09/10/23 11:46 morphine Allergy Unknown Unknown Verified 09/10/23 11:46 meperidine AdvReac Intermediate Nausea and Verified 09/10/23 11:46 Vomiting fentanyl AdvReac Mild Unknown Verified 09/10/23 11:46 SALICYLATES AdvReac Mild NOSE BLEEDS Uncoded 09/10/23 11:46 PMFSH Past Medical History Medical History Allergies Anxiety Arthritis Chronic post-traumatic stress disorder (PTSD) Dysuria Exertional dyspnea Family history of colon cancer in father Fibromyalgia Headache History of irritable bowel syndrome History of removal of cervix but not uterus Hypertension Hyponatremia Migraine Near syncope Pain in finger of right hand Scalp lesion Skin neoplasm 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 Father Carcinoma of colon COD. age 62 Acute myocardial infarction Cerebrovascular accident Sibling Leukemia Hypertension Anxiety Depression Acute myocardial infarction Grandparent Diabetes mellitus Hypertension Anxiety Depression Other Family history of cardiovascular disease Family history of kidney disease Family history of tuberculosis Social History Social History Social History: The patient is and between her they are 3 children. Only 1 his biological. The patient is disabled. She is a former smoker. She denies any alcohol marijuana or illicit drugs. Code status full code Smoking status: Never smoker Tobacco type: cigarettes Alcohol intake: never Substance use: never
[2024-03-11 14:49] LABS: Troponin I < 0.012 ng/mL (0.000-0.034)
[2024-03-11] MEDS: ONDANSETRON INJ 4 MG/2 ML VIAL IV PUSH (15:02)
[2024-03-11] MEDS: FAMOTIDINE 20 MG/2 ML VIAL IV PUSH (15:05)
[2024-03-11] MEDS: LORazepam INJ (*CRX) 2 MG/ML VIAL 0.5 MG IV PUSH (15:09)
[2024-03-11 15:14] LABS: Influenza A QL RT-PCR Negative (Negative); Influenza B QL RT-PCR Negative (Negative); RSV RNA, RT-PCR Negative (Negative); SARS-CoV-2 RNA PCR Negative (Negative)
[2024-03-11 16:05] LABS: Magnesium 1.9 mg/dL (1.6-2.3)
[2024-03-11 16:29] VITALS: BP 155/78; PULSE 76; RESP 16; TEMP 36.3; O2SAT 100
--- NOTE | 2024-03-11 17:10 | PC.NURSE ---
INFORMED BY SECURITY THAT PT WAS LEAVING. SHE WAS NOTED TO BE ROLLING IN THE WHEELCHAIR TOWARDS THE PARKING LOT. SHE WAS YELLING AT HER THAT SHE WAS LEAVING. SINCE PT HAD IV I WENT OUT TO HER TO ENCOURAGE HER TO STAY LETTER HER KNOW THAT SHE WAS THE NEXT PATIENT TO GO TO A ROOM WHEN ONE WAS AVAILABLE. SHE BEGAN TO BERATE ME AND CALLED THIS RN A BITCH AND THAT WE 'DIDN'T FUCKING DO ANYTHING FOR HER. I INFORMED THE PT THAT WE DID MANY THINGS FOR HER INCLUDING BLOOD WORK, IV AND MULTIPLE MEDS. PT THEN BEGAN FLAILING ABOUT, SWINGING HER ARMS AND KICKING HER LEGS. SHE YELLED AT HER GET YOUR FUCKING HANDS OFF OF ME! I TOLD HER TO NOT YELL OR SWING AT US OR HER BECAUSE WE ALL ARE TRYING TO HELP HER. SHE THEN SAID MY IS A HEADER UP SO HE IS USED TO GETTING YELLED AT! IV WAS REMOVED WITH INTACT CANNULA. SITE COVERED WITH TAPE AND 2X2. PT AND BEGAN ROLLING AWAY. I LET HER KNOW THAT THEY COULD RETURN AT ANY TIME FOR CONCERNS.
== END 2024-03-11 17:10 | disposition left against medical advice (07) ==
LOC: ANHED 15:47
PROVIDERS: Emergency Medicine; Emergency Provider Physician Assistant; PCP Family Medicine
DX: R10.10 Upper abdominal pain, unspecified (principal); R07.89 Other chest pain; F41.9 Anxiety disorder, unspecified; Z20.822 Contact with and (suspected) exposure to COVID-19; Z79.899 Other long term (current) drug therapy; R94.31 Abnormal electrocardiogram [ECG] [EKG]
CPT/HCPCS: 36415; 71046; 74177; 80053; 83690; 83735; 84484; 85025; 87637; 93005; 96374; 96375; 99284; J2060; J2405; Q9967

== ENCOUNTER 2025-02-09 08:56 | Outpatient (CLI) | payer MEDICARE, SELFPAY ==
--- OUTSIDE RECORDS SUMMARY | 2025-02-09 09:03 | XMS_ITS | Clinical Summary ---
Author Organization [facility] Address [address] [place] [address] Care Team Providers Care Film Booker Name Role Phone Asad Coulter MD Primary Care Provider [phone] Source Comments [facility],non-owned Affiliates and Associated Physician Practices is amultiple site organization consisting of ambulatory clinics and hospital sitesin [place], [place], [place] and [place]. This disclosure is being madepursuant to the Care Everywhere program and may not contain all information available regarding this patient. Last updated 18.[facility] Allergies Active Allergy Reactions Criticality Noted Date Comments Meperidine Angioedema High 02/12/2017 Morphine Angioedema High 02/12/2017 Medications * Be aware that medications may not be up to date on this document. Alwaysverify current medications with the patient. estrogens, conjugated, (PREMARIN) 0.625 MG/GM vaginal cream 0.5 g. 07/01/2017 Active Testosterone 10 MG/ACT (2%) Apply to skin every 30 days. 07/01/2017 Active propranolol (INDERAL) 20 MG tablet Take 20 mg by mouth BID. 02/12/2017 Active lisinopril (PRINIVIL; ZESTRIL) 10 MG tablet Take 10 mg by mouth DAILY. 02/12/2017 Active rizatriptan (MAXALT) 10 MG tablet Take 10 mg by mouth. 02/12/2017 Active ALPRAZolam (XANAX) 1 MG tablet Take 1 mg by mouth. 02/12/2017 Active tiZANidine (ZANAFLEX) 2 MG capsule Take 2 mg by mouth 4X/day. 02/12/2017 Active DULoxetine (CYMBALTA) 60 MG capsule Take 60 mg by mouth DAILY. 02/12/2017 Active traZODone (DESYREL) 150 MG tablet Take 450 mg by mouth. 02/12/2017 Active thyroid (WESTHROID) 130 MG tablet Take 1 tablet by mouth DAILY. 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 Gender Identity Not on file Sexual Orientation Not on file Plan of Treatment Health Maintenance Due Date Last Done Comments COLOGUARD (AGES 45-75) - COL ON CA SCREENING 1965 COLON MONITORING 1965 COLONOSCOPY - COLON CA SCREENING 1965 CT COLONOGRAPHY - COLON CA SCREENING 1965 Colorectal Cancer Screening 1965 FIT - COLON CA SCREENING 1965 FLEX SIG - COLON CA SCREENING 1965 LIPID TESTING 1965 MAMMOGRAM 1965 HIV SCREENING 1980 HEPATITIS C SCREENING 11/19/1983 DTAP/TDAP/TD VACCINES (1 - Tdap) 1984 HEPATITIS B VACCINE (1 of 3 - 19+ 3-dose series) 1984 PNEUMOCOCCAL VACCINE 50+ (1 of 1 - PCV) 11/24/2015 ZOSTER VACCINE (1 of 2) 11/24/2015 COVID-19 VACCINE ( - 2023-2 5 season) 2024 DEPRESSION SCREENING 06/16/2024 INFLUENZA VACCINE (#1) 2025 HIB VACCINE Aged Out No longer eligi ble based on patient's age to complete this topic HPV VACCINE Aged Out No longer eligi ble based on patient's age to complete this topic MENINGOCOCCAL (Group B) VACC INE SHARED DECISION-MAKING Aged Out No longer eligibl e based on patient's age to complete this topic MENINGOCOCCAL GROUPS A/C/Y/W VACCINE Aged Out No longer eligible b ased on patient's age to complete this topic Insurance [facility] MANAGED MEDICARE [place] [id number] Care Teams Film Booker Relationship Specialty Start Date End Date Asad Coulter MD PCP - General 11/19/16
--- OUTSIDE RECORDS SUMMARY | 2025-02-09 09:03 | XMS_ITS | Clinical Summary ---
Author Organization [facility] Address [address] [place] [address] Phone Care Team Providers Care Brim Stretcher Name Role Phone Yosvany Avalos MD Primary Care Provider [phone] Allergies Active Allergy Reactions Criticality Noted Date Comments Hydrocodone-Acetaminophen Hives High 12/12/2012 Morphine Hypotension Medium 12/12/2012 Medications zolpidem (AMBIEN) 5 mg Oral tabletIndication s:For sleep Take 1 Tab by mouth nightly as needed for Insomnia. 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 Indications: Thyroid replacement 30 Tab 1 3 Active DULoxetine (CYMBALTA) 60 mg Oral CpDRIndications: depression Take 60 mg by mouth daily . 3 Active clonazePAM (KLONOPIN) 0.5 mg Oral TabIndications:a nxiety bid Indications: ANXIETY 60 Tab 1 3 Active lamoTRIgine (LAMICTAL) 100 mg Oral tabletIndication s:For mood Take 1 Tab by mouth 2 times daily. Indications: For mood 60 Tab 1 3 Active paliperidone (INVEGA) 1.5 mg Oral [id number]: For Mood Take 1 Tab by mouth daily at bedtime. Indications: For Mood 30 Tab 1 3 Active lithium carbonate (ESKALITH IR) 300 mg CapsuleIndicatio ns:mood Take 300 mg by mouth 2 times daily with meals . Active ergocalciferol (VITAMIN D2) 50,000 unit capsuleIndicatio ns:arthritis Take 50,000 Units by mouth every 7 days. 6 Active traZODone (DESYREL) 300 mg tabletIndication s:depression Take 0.5 Tablet (150 mg) by mouth nightly as needed for Insomnia. 30 Tablet 1 6 Active pregabalin (LYRICA) 150 mg CapsuleIndicatio ns:pain Take 150 mg by mouth daily. Active carisoprodol (SOMA) 350 mg tabletIndication s:pain Take 350 mg by mouth 3 times daily. Active Active Problems Problem Noted Date Diagnosed Date Acute encephalopathy 08/18/2015 Altered mental status 08/18/2015 Fibromyalgia 08/11/2015 Sore throat 08/11/2015 Dyslipidemia 02/28/2013 Back pain 02/28/2013 Major depressive disorder, recurrent episode, se morena 12/13/2012 Hypothyroidism 12/13/2012 Arthritis 12/13/2012 Routine general medical exam ination at a health care facility 12/13/2012 Major depressive disorder, r ecurrent, severe without psychotic features Hypothyroidism due to acquired atrophy of thyroi d Family History Medical History Relation Name Comments Colon Cancer Father High Cholesterol Father Unknown Maternal Grandfather Unknown Maternal Grandmother Heart Disease Mother High Cholesterol Mother Hypertension Mother Diabetes Paternal Grandfather Other Paternal Grandmother alzheim er's dementia Relation Name Status Comments Father Maternal Grandfather Maternal Grandmother Mother Alive Paternal Grandfather Paternal Grandmother Social History Tobacco Use Types Packs/Day Years Used Date Smoking Tobacco: Former Cigarettes Smokeless Tobacco: Never Tobacco Cessation:Ready to Q uit: No; Counseling Given: No Alcohol Use Standard Drinks/Week Comments No 0 (1 standard drink = 0.6 oz pure alcohol) rarely. glass a wine with dinner, etc Comments No Sex and Gender Information Value Date Recorded Sex Assigned at Not on file Legal Sex Female 10:31 PM CDT Gender Identity Not on file Sexual Orientation Not on file Occupation Industry Job Start Date Job End Date Not on file Not on file Not on file Not on file Last Filed Vital Signs Vital Sign Reading Time Taken Comments Blood Pressure 104/62 10/11/2015 9:47 AM CDT Pulse 72 10/11/2015 9:47 AM CDT Temperature 36.3 C (97.3 F) 10/11/2015 9:47 AM CDT Respiratory Rate 0 10/11/2015 9:47 AM CDT Oxygen Saturation 97% 10/11/2015 9:47 AM CDT Inhaled Oxygen Concentration - - Weight 90.3 kg (199 lb) 09/18/2015 7:28 AM CDT Height 182.9 cm (6') 09/18/2015 7:28 AM CDT Body Mass Index 26.99 09/18/2015 7:28 AM CDT Plan of Treatment Health Maintenance Due Date Last Done Comments DTAP/TDAP/TD VACCINES (1 - Tdap) 1984 HEPATITIS B VACCINES (1 of 3 - 19+ 3-dose series) 11/14 HPV/Cotest (21-29) 1986 CERVICAL CANCER SCREENING 11/24/1995 HPV/Cotest (30-65) 11/24/1995 PAP SMEAR 11/24/1995 BREAST CANCER SCREENING 2005 COLORECTAL SCREENING 2010 Colorectal Cancer Screening 2010 FIT-DNA Q 3 years 2010 FIT/FOBT Q 1 year 2010 Flex Sig/CT Colonography Q 5 years 2010 ZOSTER VACCINE (1 of 2) 11/24/2015 INFLUENZA VACCINE (#1) 2025 [place] [address] Advance Directives For more information, please contact: [phone] * Full Code (Latest Code Status on File) Date Activated Date Inactivated Comments 08/18/2015 1:10 PM 08/19/2015 9:54 PM * Full Code Date Activated Date Inactivated Comments 12/13/2012 3:01 AM 12/15/2012 12:11 PM Care Teams Brim Stretcher Relationship Specialty Start Date End Date Yosvany Avalos MD PCP - General 06/02/15
--- NOTE | 2025-02-09 09:20 | NEURO_ITS ---
Impression: # Non-diabetic complains of left upper extremity discomfort. ? # No Carpal Tunnel Syndrome. ? # Mild left Ulnar Neuropathy across the elbow. ? # Needle/ EMG exam normal proximally as well. ? # Clinical correlation recommended. Nerve Conduction Studies ?Stim Site NR Peak (ms) P-T Amp (?V) Site1 Site2 Delta-P (ms) Dist (cm) Timoteo (m/s) Left Median Anti Sensory (2-3nd Digit) Wrist ? 3.4 34.4 Wrist 2-3nd Digit 3.4 14.0 41 Wrist ? 3.2 30.7 Wrist 2-3nd Digit 3.4 14.0 41 Left Radial Anti Sensory (Base 1st Digit) Wrist ? 2.1 23.5 Wrist Base 1st Digit 2.1 0.0 Left Ulnar Anti Sensory (5th Digit) Wrist ? 3.1 5.4 Wrist 5th Digit 3.1 14.0 45 ?Stim Site NR Onset (ms) O-P Amp (mV) Site1 Site2 Delta-0 (ms) Dist (cm) Timoteo (m/s) Left Median Motor (Abd Poll Brev) Wrist ? 3.7 7.9 Elbow Wrist 4.7 29.0 62 Elbow ? 8.4 7.3 Left Ulnar Motor (Abd Dig Minimi) Wrist ? 2.9 5.3 A Elbow Wrist 5.9 32.0 54 A Elbow ? 8.8 4.3 B Elbow Wrist 4.0 23.0 58 B Elbow ? 6.9 4.8 F Wave Studies ?NR F-Lat (ms) L-R F-Lat (ms) Left Median (Mrkrs) (Abd Poll Brev) ? 27.72 Left Ulnar (Mrkrs) (Abd Dig Min) ? 29.30 Electromyography ?Side Muscle Nerve Root Ins Act Fibs Amp Dur Recrt Comment Left 1stDorInt Ulnar C8-T1 Nml Nml Nml Nml Nml Left Ext Indicis Radial (Post Int) C7-8 Nml Nml Nml Nml Nml Left Ext Digitorum Radial (Post Int) C7-8 Nml Nml Nml Nml Nml Left BrachioRad Radial C5-6 Nml Nml Nml Nml Nml Left PronatorTeres Median C6-7 Nml Nml Nml Nml Nml Left Abd Poll Brev Median C8-T1 Nml Nml Nml Nml Nml Left ABD Dig Min Ulnar C8-T1 Nml Nml Nml Nml Nml Left FlexPolLong Median (Ant Int) C7-8 Nml Nml Nml Nml Nml Left Abd Poll Long Radial (Post Int) C7-8 Nml Nml Nml Nml Nml Left Biceps Musculocut C5-6 Nml Nml Nml Nml Nml Left Triceps Radial C6-7-8 Nml Nml Nml Nml Nml Left Deltoid Axillary C5-6 Nml Nml Nml Nml Nml
== END 2025-02-09 08:57 | disposition home or self-care (01) ==
PROVIDERS: PCP Family Medicine; Visit Provider Plastic Surgery
DX: G56.32 Lesion of radial nerve, left upper limb (principal); G56.22 Lesion of ulnar nerve, left upper limb
CPT/HCPCS: 95886; 95909